=== PATIENT | male | born 2005 | race Caucasian/White ===

== ENCOUNTER 2023-09-21 11:32 | Emergency (ER) | payer OTHER, SELFPAY ==
[2023-09-21 11:38] VITALS: BP 142/84; PULSE 79; RESP 16; TEMP 36.9; O2SAT 98; BMI 28.8
--- NOTE | 2023-09-21 11:42 | PC.NURSE ---
no swelling or bruising observed with outer ankle slightly red
--- NOTE | 2023-09-21 11:44 | XR_ITS ---
The [address] [address] Patient Name: KIMBERLY MONTANEZ MRN: [id number] date: 2005 Sex: M Assigned Patient Location: ER Current Patient Location: ED.MAIN Accession/Order Number: [id number] Exam Date: 09/21/2023 11:50 Report Date: 09/21/2023 12:16 At the request of: CHAD CLAIRE Procedure: XR ankle LT min 3V PROCEDURE: XR ankle LT min 3V COMPARISON: None. HISTORY: pain FINDINGS: BONES:3 mm corticated bone fragment identified along the inferior medial aspect of the lateral malleolus. A remote injury is favored. Focal area of sclerosis distal anterior tibial metaphysis measuring 7 mm, an enostosis is favored. SOFT TISSUES:Negative. No visible soft tissue swelling. EFFUSION:None visible. OTHER: Negative. XR/XR ankle LT min 3V IMPRESSION: 3 mm bone fragment inferior lateral malleolus, likely chronic Electronically authenticated by: NITESH ROTH Date: 09/21/2023 12:16
--- NOTE | 2023-09-21 11:56 | ED.LOWEXI1 ---
HPI - Extremity Injury (Lower) General Chief Complaint: Extremity Injury, Lower Stated Complaint: LOWER EXTERMITY INJURY' LEFT Time Seen by Provider: 09/21/23 11:37 Source: patient Mode of arrival: walk-in History of Present Illness HPI Narrative: 18-year-old male presents for left ankle pain. He points to the lateral malleolus. He was walking into school today, this morning, and he twisted it. No other injury was sustained. He states he has broken that ankle before. He has been able to ambulate and the pain is moderate. Related Data Home Medications Medication Instructions Recorded Confirmed No Known Home Medications 09/21/23 09/21/23 Allergies Allergy/AdvReac Type Severity Reaction Status Date / Time cefuroxime [From Ceftin] Allergy Severe Verified 09/21/23 11:40 Penicillins Allergy Severe Verified 09/21/23 11:40 Review of Systems ROS Narrative A ten point review of systems is negative except as noted above. Exam Narrative Exam Narrative: Nurses note and vital signs reviewed and patient is not hypoxic. General: The patient appears well and in no apparent distress. Patient is resting comfortably on cart. Skin: Warm, dry, no pallor noted. There is no rash noted. Head: Normocephalic, atraumatic Eye: Normal conjunctiva, no drainage Ears, Nose, Mouth, and Throat: oral mucosa is moist. Nares patent. Cardiovascular: Regular Rate and Rhythm Respiratory: Patient is in no distress, no accessory muscle use, lungs are clear to auscultation, no wheezing, rales or rhonchi Back: non-tender GI: Soft and nontender Musculoskeletal: Left foot is nontender including the fifth metatarsal area. She has no visible swelling over the lateral malleolus. Skin intact. Mild tenderness present. Knee nontender. Neurological: A&O, normal speech Psychiatric: Cooperative Constitutional Vital Signs, click to edit/add: Last Vital Signs Temp 98.4 F 09/21/23 11:38 Pulse 79 09/21/23 11:38 Resp 16 09/21/23 11:38 BP 142/84 H 09/21/23 11:38 Pulse Ox 98 09/21/23 11:38 O2 Del Method Room Air 09/21/23 11:38 Course Vital Signs Vital signs: Vital Signs Temperature 98.4 F 09/21/23 11:38 Pulse Rate 79 09/21/23 11:38 Respiratory Rate 16 09/21/23 11:38 Blood Pressure 142/84 H 09/21/23 11:38 Pulse Oximetry 98 09/21/23 11:38 Oxygen Delivery Method Room Air 09/21/23 11:38 Temperature 98.4 F 09/21/23 11:38 Pulse Rate 79 09/21/23 11:38 Respiratory Rate 16 09/21/23 11:38 Blood Pressure 142/84 H 09/21/23 11:38 Pulse Oximetry 98 09/21/23 11:38 Oxygen Delivery Method Room Air 09/21/23 11:38 MDM - Extremity Injury (Lower) MDM Narrative Medical decision making narrative: X-ray per radiologist shows no definite acute findings. He is able to ambulate. He was offered Leandro wrap and air splint and does not feel that he needs them. Treatment diagnosis and follow-up were discussed with the patient. Differential Diagnosis Differential diagnosis: Likely ankle sprain and strain and ankle fracture Imaging Data Left ankle x-ray: Radiologist's impression: ITS Impressions Ankle X-Ray 09/21/23 11:44 IMPRESSION: 3 mm bone fragment inferior lateral malleolus, likely chronic Electronically authenticated by: NITESH ROTH Date: 09/21/2023 12:16 Discharge Plan Discharge Stand Alone Forms: Portal Instructions Chief Complaint: Extremity Injury, Lower Clinical Impression: Left ankle sprain Patient Disposition: Home, Self-Care Time of Disposition Decision: 12:22 Condition: Good Mode of Transportation: Private Vehicle Prescriptions / Home Meds: No Action No Known Home Medications Instructions: Ankle Sprain (ED) Referrals: Physician,Non-Staff, MD [Primary Care Provider] - 1 week
== END 2023-09-21 12:30 | disposition home or self-care (01) ==
PROVIDERS: Emergency Provider Emergency Medicine
DX: S93.402A Sprain of unspecified ligament of left ankle, initial encounter (principal); X50.1XXA Overexertion from prolonged static or awkward postures, initial encounter
CPT/HCPCS: 73610; 99283

== ENCOUNTER 2024-08-21 13:28 | Emergency (ER) | payer OTHER, MEDICAID, SELFPAY ==
[2024-08-21 13:38] VITALS: BP 116/84; PULSE 110; TEMP 37.1; O2SAT 97; BMI 28.7
--- OUTSIDE RECORDS SUMMARY | 2024-08-21 13:41 | XMS_ITS | CCD ---
Author Organization [facility] Care Team Providers Care Contour Band Saw Operator Vertical Name Role Phone Leo Chicas Primary Care Provider DR GUNJAN MCKENZIE Primary Care Unavailable CHRIS HUYNH Admitting Unavailable CHRIS HUYNH Attending Unavailable Nitesh Singh Unavailable CHRIS HUYNH Consulting Unavailable NICOLE MARINA Admitting Unavailable NICOLE MARINA Attending Unavailable NICOLE MARINA Primary Care Unavailable NICOLE MAIRNA Consulting Unavailable Nicole Marina Unavailable Leo Chicas Primary Care Provider Laina DYNAMOMETER TUNER - 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, Nicole Primary Care [facility] er Laina DYNAMOMETER TUNER - 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, Nicole Primary Care [facility] er LEE CARTWRIGHT Attending Unavailable NICOLE MARINA Primary Care Unavailable NICOLE MARINA Primary Care Unavailable VAL MANNING Attending UnavailNICOLE Albarado Primary Care Unavailable FRANCO HURT Referring Unavailable NICOLE MARINA Primary Care Unavailable FRANCO HURT Referring Unavailable JULIA CLARK Attending Unavailable LEO CHICAS Primary Care Unavailable HERMINIA MARINA Attending Unavail able HERMINIA MARINA Admitting Unavail able NICOLE MARINA Attending Unavailable NICOLE MARINA Admitting Unavailable VINAY JONES Attending Unavailable VINAY JONES Attending Unavailable Allergies Allergy Classification Reported Allergen(s) Allergy Type Date of Onset Reaction(s) Facility (6 sources) Cefuroxime Drug Allergy 06-28-20 16 Rash [facility], [place] (6 sources) Cyproheptadine Drug Allergy 06-28-20 16 Other (See Comments) [place], [place] (2 sources) Penicillins Propensity to adverse reactions to drug 06-28-20 16 Hives [place], [place] (1 source) Cefuroxime Drug Allergy 03-02-20 20 [facility] (1 source) Penicillins Drug allergy (disorder) 11-20-19 13 [facility] (5 sources) Cefuroxime Drug Allergy rash [facility] Other (5 sources) Penicillin G Drug Allergy Unknown [facility] Other (4 sources) Penicillins Propensity to adverse reactions to drug 06-28-20 16 [facility] PA[facility] Work Phone: Medications Current Medications Medication Drug Class(es) Dates Sig (Normalized) Sig (Original) clarithromycin 500 mg oral tablet (1 source) Macrolide Antimicrobial Start: 08-14-2022 take 1 tablet by mouth every twelve hours Clarithromycin 500 MG 1 tablet Orally every 12 hrs for 10 day(s) Aug, Active fluticasone propionate 0.05 mg/actuat metered dose nasal spray (1 source) Corticosteroid Start: 08-14-2022 take 1 spray(s) nasal route once daily Fluticasone Propionate 50 MCG/ACT 1 spray in each nostril Nasally Once a day for 21 days Aug, Active ibuprofen 400 mg oral tablet (7 sources) Nonsteroidal Anti-inflammatory Drug Start: 04-05-2021 ibuprofen (ADVIL;MOTRIN) tablet 400 mg Multivitamin preparation (4 sources) Multivitamin Act gonzales sertraline 25 mg oral tablet (2 sources) Serotonin Reuptake Inhibitor Start: 04-15-2021 take 1 tablet by mouth every twenty-four hours Sertraline HCl 25 MG 1 tablet Orally Once a day for 30 day(s) Apr, Active Completed/Discontinued Medications Medication Drug Class(es) Dates Sig (Normalized) Sig (Original) cetirizine hydrochloride 10 mg oral tablet (1 source) Histamine-1 Receptor Antagonist End: 05-13-2019 take 1 tablet by mouth once daily cetirizine (ZYRTEC) 10 MG tablet Take 10 mg by mouth daily 0 05/13/2019 Discontinued (LIST CLEANUP) 1 ml ketorolac tromethamine 30 mg/ml cartridge (1 source) Nonsteroidal Anti-inflammatory Drug, Cyclooxygenase Inhibitor Start: 12-11-2022 End: 12-11-2022 ketorolac (TORADOL) injection 30 mg Start: 12-11-2022 End: 12-11-2022 ketorolac (TORADOL) injectio n 30 mg montelukast 10 mg oral tablet (1 source) Leukotriene Receptor Antagonist End: 05-13-2019 take 1 tablet by mouth once daily montelukast (SINGULAIR) 10 MG tablet Take 10 mg by mouth nightly 0 05/13/2019 Discontinued (LIST CLEANUP) pantoprazole 40 mg delayed release oral tablet (5 sources) Proton Pump Inhibitor Start: 10-16-2020 take 1 tablet by mouth every twenty-four hours Protonix 40 MG 1 tablet Orally Once a day for 30 day(s) Oct, Not-Taking sucralfate 1000 mg oral tablet (5 sources) Aluminum Complex Start: 11-13-2020 take 1 tablet by mouth every eight hours Sucralfate 1 GM 1 tablet Orally three times a day for 30 day(s) November, Not-Taking Problems Active Problems Problem Classification Problem Date Documented Da te Episodic/Chronic Anxiety disorders (6 sources) Generalized anxiety disorder; Translations: [Generalized anxiety disorder] Onset: 1 Resolved: 1 Chronic Developmental disorders (5 sources) Nonverbal learning disorder; 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 Fracture of lower limb (5 sources) Closed fracture of ankle; Translations: [Other fracture of right lower leg, subsequent encounter for closed fracture with delayed healing] Onset: 3 Episodic Miscellaneous mental health disorders (5 sources) Psychophysiologic insomnia; Translations: [Psychophysiologic insomnia] Chronic Other disorders of stomach and duodenum (5 sources) Upset stomach; Translations: [Functional dyspepsia] Episodic Other gastrointestinal disorders (5 sources) Dysphagia; Translations: [Dysphagia, unspecified] Episodic Other injuries and conditions due to external causes (3 sources) Injury of right ankle; Translations: [Unspecified injury of right ankle, subsequent encounter] Episodic Other non-traumatic joint disorders (4 sources) Loose body in joint of ankle and/or foot; Translations: [Loose body in right ankle] Chronic Other non-traumatic joint disorders (2 sources) Loose body in right ankle Onset: 2 Resolved: 2 Chronic Other non-traumatic joint disorders (1 source) Acute ankle pain; Translations: [Pain in right ankle and joints of right foot] Episodic Other non-traumatic joint disorders (1 source) Pain of left wrist; Translations: [Pain in left wrist] Episodic Other non-traumatic joint disorders (2 sources) Other instability, right ankle; Translations: [Other instability, right ankle] Onset: 3 Episodic Otitis media and related conditions (1 source) Otitis media, unspecified, right ear Episodic Rehabilitation care; fitting of prostheses; and adjustment of devices (1 source) Encounter for fitting and adjustment of other specified devices; Translations: [Encounter for fitting and adjustment of other specified devices] Onset: 3 Chronic Sprains and strains (2 sources) Sprain of right ankle; Translations: [Sprain of unspecified ligament of right ankle, sequela] Onset: 3 Episodic Unclassified (1 source) Injury of left ankle; Translations: [Injury of left ankle, initial encounter] Unclassified (1 source) CONTACT W/AND (SUSP) EXPOS COVID-19; Translations: [CONTACT W/AND (SUSP) EXPOS COVID-19] Onset: 1 Past or Other Problems Problem Classification Problem Date Documented Date Episodic/Chronic Administrative/social admission (1 source) Encounter for examination for participation in sport; Translations: [Routine sports physical exam Z02.5] Onset: 04-15-2021 Resolved: 04-15-2021 Episodic E Codes: Fall (2 sources) Fall; Translations: [Unspecified fall, initial encounter] Onset: 10-06-2022 Episodic Other injuries and conditions due to external causes (2 sources) Unspecified injury of right ankle, subsequent encounter; Translations: [UNSPECIFIED INJURY RT ANKLE SUBSQT] Onset: 09-12-2021 Resolved: 09-12-2021 Episodic Other lower respiratory disease (4 sources) Hemoptysis; Translations: [HEMOPTYSIS] Onset: 03-19-2021 Episodic Other non-traumatic joint disorders (1 source) Pain in right ankle and joints of right foot Onset: 08-22-2021 Resolved: 08-22-2021 Episodic Other non-traumatic joint disorders (1 source) Pain in left wrist; Translations: [Pain in left wrist] Onset: 10-06-2022 Episodic Other upper respiratory infections (1 source) Acute upper respiratory infection, unspecified; Translations: [ACUTE UP RESPIRATORY INFECTION UNS] Onset: 2021 Episodic Results Test Name Value Interpretation Reference Range Facility [facility] 12-09-2023 Albumin [Mass/Vol] 4.7 g/dL Normal 3.3-5.0 [facility] Comment on above: Performed By: #### 2 [id number] #### [facility] [address] [place] [address] Albumin/Globulin (S) [Mass conc ratio] 2.0 Normal 1.1-2.2 [facility] Comment on above: Performed By: #### 2 [id number] #### [facility] [address] [place] [address] ALP [Catalytic activity/Vol] 79 Int._Unit/L Normal 21-98 [facility] Comment on above: Performed By: #### 2 [id number] #### [facility] [address] [place] [address] ALT No additional P-5'-P [Catalytic activity/Vol] 18 Int._Unit/L Normal 6-46 [facility] Comment on above: Performed By: #### 2 [id number] #### [facility] [address] [place] [address] Anion gap [Moles/Vol] 12 mmol/L Normal 6-16 [facility] [place] Comment on above: Performed By: #### 2 [id number] #### [facility] [address] [place] [address] AST [Catalytic activity/Vol] 16 Int._Unit/L Normal 5-43 [facility] Comment on above: Performed By: #### 2 [id number] #### [facility] [address] [place] [address] Bilirubin [Mass/Vol] 0.5 mg/dL Normal 0.0-1.1 [facility] Comment on above: Performed By: #### 2 [id number] #### [facility] [address] [place] [address] Calcium [Mass/Vol] 9.4 mg/dL Normal 8.9-11.1 [facility] Comment on above: Performed By: #### 2 [id number] #### [facility] [address] [place] [address] Chloride [Moles/Vol] 105 mmol/L Normal 101-111 [facility] Comment on above: Performed By: #### 2 [id number] #### [facility] [address] [place] [address] CO2 [Moles/Vol] 29 mmol/L Normal 21-31 [facility] Comment on above: Performed By: #### 2 [id number] #### [facility] [address] [place] [address] Creatinine [Mass/Vol] 1.0 mg/dL Normal 0.5-1.3 [facility] [place] Comment on above: Performed By: #### 2 [id number] #### [facility] [address] [place] [address] Globulin (S) [Mass/Vol] 2.4 g/dL Normal 1.4-4.0 [facility] Comment on above: Performed By: #### 2 [id number] #### [facility] [address] [place] [address] Glucose [Mass/Vol] 83 mg/dL Normal 55-199 [facility] Comment on above: Performed By: #### 2 [id number] #### [facility] [address] [place] [address] Potassium [Moles/Vol] 4.6 mmol/L Normal 3.5-5.3 [facility] Comment on above: Performed By: #### 2 [id number] #### [facility] [address] [place] [address] Protein [Mass/Vol] 7.1 g/dL Normal 6.0-7.8 [facility] Comment on above: Performed By: #### 2 [id number] #### [facility] [address] [place] [address] Sodium [Moles/Vol] 141 mmol/L Normal 135-145 [facility] Comment on above: Performed By: #### 2 [id number] #### [facility] [address] [place] [address] Urea nitrogen [Mass/Vol] 17 mg/dL Normal 5-21 [facility] Comment on above: Performed By: #### 2 [id number] #### [facility] [address] [place] [address] Urea nitrogen/Creatinine [Mass ratio] 17 No Units Normal 10-20 [facility] Comment on above: Performed By: #### 2 [id number] #### [facility] [address] [place] [address] Lipid Panelon 12-09-2023 Cholesterol [Mass/Vol] 133 mg/dL Normal 120-200 [facility] Comment on above: Performed By: #### 2 [id number] #### [facility] [address] [place] [address] Cholesterol in HDL [Mass/Vol] 31 mg/dL Invalid Interpretation Code [facility] Comment on above: Result Comment: '>= 60 LOW RISK' '<= 40 HIGH RISK' Performed By: #### 2 [id number] #### [facility] [address] [place] [address] Cholesterol in LDL [Mass/Vol] 85 mg/dL Normal <=129 [facility] Comment on above: Performed By: #### 2 [id number] #### [facility] [address] [place] [address] Cholesterol in VLDL [Mass/Vol] 35 mg/dL Normal 7-40 [facility] Comment on above: Performed By: #### 2 [id number] #### [facility] [address] [place] [address] Triglyceride [Mass/Vol] 174 mg/dL High <=149 [facility] Comment on above: Performed By: #### 2 [id number] #### [facility] [address] [place] [address] Physician Orderon 12-09-2023 Physician Order [id number] Normal [facility] T4 & TSHon 12-09-2023 TSH Qn 1.50 m[IU]/L Normal 0.34-5.60 [facility] Comment on above: Performed By: #### 1 [id number] #### [facility] [address] [place] [address] T4 [Mass/Vol] 8.5 microgram/dL Normal 4.6-9.1 [facility] Comment on above: Performed By: #### 1 [id number] #### [facility] [address] [place] [address] eGFRon 12-09-2023 eGFR 110 mL/min/1.73 m2 Normal >=59 [facility] Comment on above: Order Comment: Order added by Discern Expert. Performed By: #### 1 [id number] #### [facility] [address] [place] [address] XR FOOT RIGHT (MIN 3 VIEWS)o n 02-28-2023 XR FOOT RIGHT (MIN 3 VIEWS) EXAMINATION: THREE XRAY VIEWS OF THE RIGHT FOOT 02/27/2023 10:47 pm COMPARISON: None. HISTORY: ORDERING SYSTEM PROVIDED HISTORY: pain TECHNOLOGIST PROVIDED HISTORY: pain FINDINGS: 2 metallic anchors are noted in the calcaneus and talus. There is no evidence of acute fracture. There is normal alignment of the tarsometatarsal joints. No acute joint abnormality. No focal osseous lesion. No focal soft tissue abnormality. IMPRESSION: No acute osseous abnormality. Postop changes as above. Interpreted by: Jose Alberto Tello MD Signed by: Jose Alberto Tello MD 02/27/23 Final result Normal [facility] Basic Metabolic Panelon 08-0 Anion gap [Moles/Vol] 8 mmol/L Low 9 - 17 mmol/L [facility] Calcium [Mass/Vol] 9.0 mg/dL 8.6 - 10. 4 mg/dL [facility] Chloride [Moles/Vol] 102 mmol/L 98 - 10 7 mmol/L [facility] CO2 [Moles/Vol] 28 mmol/L 20 - 31 mmol/L [facility] Creatinine [Mass/Vol] 0.9 mg/dL 0.7 - 1.2 mg/dL [facility] GFR/1.73 sq M.predicted MDRD (S/P/Bld) [Vol rate/Area] - PINF [facility] Comment on above: These results are not intended for use in patients <18 years of age. eGFR results are calculated without a race factor using the 2020 CKD-EPI equation. Careful clinical correlation is recommended, particularly when comparing to results calculated using previous equations. The CKD-EPI equation is less accurate in patients with extremes of muscle mass, extra-renal metabolism of creatine, excessive creatine ingestion, or following therapy that affects renal tubular secretion. Glucose [Mass/Vol] 82 mg/dL 70 - 99 mg/dL [facility] Interpretation and review of laboratory results Abnormal [facility] Potassium [Moles/Vol] 3.8 mmol/L 3.7 - 5.3 mmol/L [facility] Sodium [Moles/Vol] 138 mmol/L 135 - 144 mmol/L [facility] Urea nitrogen [Mass/Vol] 15 mg/dL 6 - 20 mg/dL [facility] Urea nitrogen/Creatinine [Mass ratio] 17 mg/mg 9 - 20 [facility] Basic Metabolic Profon 02-10 Anion gap [Moles/Vol] 8 mmol/L Low -17 [facility] Comment on above: Performed By: #### B ALESSIA, CDP #### [facility] [address] [place] [address] Regional Trainer: Nitesh Biggs MD BUN/CRE Ratio 17 Normal - [facility] Comment on above: Performed By: #### B ALESSIA, CDP #### [facility] [address] [place] [address] Regional Trainer: Nitesh Biggs MD Calcium [Mass/Vol] 9.0 mg/dL Normal 8.6-10.4 [facility] Comment on above: Performed By: #### B ALESSIA, CDP #### [facility] [address] [place] [address] Regional Trainer: Nitesh Biggs MD Chloride [Moles/Vol] 102 mmol/L Normal 98-107 [facility] Comment on above: Performed By: #### B ALESSIA, CDP #### [facility] [address] [place] [address] Regional Trainer: Nitesh Biggs MD CO2 [Moles/Vol] 28 mmol/L Normal 20-31 [facility] Comment on above: Performed By: #### B ALESSIA, CDP #### [facility] [address] [place] [address] Regional Trainer: Nitesh Biggs MD Creatinine [Mass/Vol] 0.9 mg/dL Normal 0.7-1.2 [facility] Comment on above: Performed By: #### B ALESSIA, CDP #### [facility] [address] [place] [address] Regional Trainer: Nitesh Biggs MD GFR/1.73 sq M.predicted among non-blacks MDRD (S/P/Bld) [Vol rate/Area] mL/min/{1.73_m2} Normal >60 [facility] Comment on above: Result Comment: These results are not intended for use in patients <18 years of age. eGFR results are calculated without a race factor using the 2020 CKD-EPI equation. Careful clinical correlation is recommended, particularly when comparing to results calculated using previous equations. The CKD-EPI equation is less accurate in patients with extremes of muscle mass, extra-renal metabolism of creatine, excessive creatine ingestion, or following therapy that affects renal tubular secretion. Performed By: #### B ALESSIA, CDP #### [facility] [address] [place] [address] Regional Trainer: Nitesh Biggs MD Glucose [Mass/Vol] 82 mg/dL Normal 70-99 [facility] Comment on above: Performed By: #### B ALESSIA, CDP #### [facility] [address] [place] [address] Regional Trainer: Nitesh Biggs MD Potassium [Moles/Vol] 3.8 mmol/L Normal 3.7-5.3 [facility] Comment on above: Performed By: #### B ALESSIA, CDP #### [facility] [address] [place], [place] [id number] Regional Trainer: Nitesh Biggs MD Sodium [Moles/Vol] 138 mmol/L Normal 135-144 [facility] Comment on above: Performed By: #### B ALESSIA, CDP #### [facility] [address] [place] [address] Regional Trainer: Nitesh Biggs MD Urea nitrogen [Mass/Vol] 15 mg/dL Normal 6-20 [facility] Comment on above: Performed By: #### B ALESSIA, CDP #### [facility] [address] [place], [place] [id number] Regional Trainer: Nitesh Biggs MD CBC with Auto Differentialon 02-10-2023 Basophils (Bld) [#/Vol] 0.08 10*3/uL [facility] Basophils/100 WBC (Bld) 1 % 0 - 2 % [facility] Eosinophils (Bld) [#/Vol] 0.33 10*3/uL [facility] Eosinophils/100 WBC (Bld) 4 % 1 - 4 % [facility] Erythrocyte distribution width (RBC) [Ratio] 13.2 % 11.8 - 14.4 % [facility] Hematocrit (Bld) [Volume fraction] 46.1 % 40.7 - 50.3 % [facility] Hemoglobin (Bld) [Mass/Vol] 15.8 g/dL 13.0 - 17.0 g/dL [facility] Immature granulocytes (Bld) [#/Vol] [facility] Immature granulocytes/100 WBC (Bld) 0 % 0 [facility] Lymphocytes/100 WBC (Bld) 34 % 25 - 45 % [facility] Lymphocytes/100 WBC (Bld) 2.56 % [facility] MCH (RBC) [Entitic mass] 30.2 pg 25.2 - 33.5 pg [facility] MCHC (RBC) [Mass/Vol] 34.3 g/dL 28.4 - 34.8 g/dL [facility] MCV (RBC) [Entitic vol] 88.1 fL 82.6 - 102.9 fL [facility] Monocytes/100 WBC (Bld) 7 % 2 - 8 % [facility] Monocytes/100 WBC (Bld) 0.56 % [facility] Neutrophils/100 WBC (Bld) 54 % 34 - 64 % [facility] Nucleated RBC/100 WBC (Bld) [Ratio] 0.0 % 0.0 per 100 WBC [facility] Platelet mean volume (Bld) [Entitic vol] 10.3 fL 8.1 - 13.5 fL [facility] Platelets (Bld) [#/Vol] 229 10*3/uL [facility] RBC (Bld) [#/Vol] 5.23 10*6/uL 4.21 - 5.7 7 m/uL [facility] Segmented neutrophils/100 WBC (Bld) 4.06 % [facility] WBC other (Bld) [#/Vol] 7.6 [facility] CBC with Diffon 02-10-2023 Abs. Basophil 0.08 k/uL Normal 0.00-0.[address] [facility] Comment on above: Performed By: #### B ALESSIA, CDP #### [facility] [address] [place] [address] [place] [address] Regional Trainer: Nitesh Biggs MD Abs.Imm.Granulocyte <0.03 Normal 0.00-0.30 [facility] Comment on above: Performed By: #### B ALESSIA, CDP #### [facility] [address] [place] [address] Regional Trainer: Nitesh Biggs MD Abs.Neutrophil (Seg) 4.06 k/uL Normal 1.80-8.00 [facility] Comment on above: Performed By: #### B ALESSIA, CDP #### [facility] [address] [place] [address] [place] [place], [place] [id number] Regional Trainer: Nitesh Biggs MD Basophils/100 WBC (Bld) 1 % Normal 0-2 [facility] Comment on above: Performed By: #### B ALESSIA, CDP #### [address] [place], [place] [id number] Regional Trainer: Nitesh Biggs MD Eosinophils (Bld) [#/Vol] 0.33 10*3/uL Normal 0.00-0.44 [facility] Comment on above: Performed By: #### B ALESSIA, CDP #### [address] [place], [place] [id number] Regional Trainer: Nitesh Biggs MD Eosinophils/100 WBC (Bld) 4 % Normal 1-4 [facility] Comment on above: Performed By: #### B ALESSIA, CDP #### [address] [place], [place] [id number] Regional Trainer: Nitesh Biggs MD Erythrocyte distribution width (RBC) [Ratio] 13.2 % Normal 11.8-14.4 [facility] Comment on above: Performed By: #### B ALESSIA, CDP #### [address] [place], [place] [id number] Regional Trainer: Nitesh Biggs MD Hematocrit (Bld) [Volume fraction] 46.1 % Normal 40.7-50.3 [facility] Comment on above: Performed By: #### B ALESSIA, CDP #### [address] [place], [place] [id number] Regional Trainer: Nitesh Biggs MD Hemoglobin (Bld) [Mass/Vol] 15.8 g/dL Normal 13.0-17.0 [facility] Comment on above: Performed By: #### B ALESSIA, CDP #### [address] [place], [facility]83 Regional Trainer: Nitesh Biggs MD Immature granulocytes/100 WBC (Bld) 0 % Normal 0 [facility] Comment on above: Performed By: #### B ALESSIA, CDP #### [address] [place], [facility]83 Regional Trainer: Nitesh Biggs MD Lymphocytes (Bld) [#/Vol] 2.56 10*3/uL Normal 1.20-5.20 [facility] Comment on above: Performed By: #### B ALESSIA, CDP #### [address] [place], [facility]83 Regional Trainer: Nitesh Biggs MD Lymphocytes/100 WBC (Bld) 34 % Normal 25-45 [facility] Comment on above: Performed By: #### B ALESSIA, CDP #### [address] [place], [place] [address] Regional Trainer: Nitesh Biggs MD MCH (RBC) [Entitic mass] 30.2 pg Normal 25.2-33.5 [facility] Comment on above: Performed By: #### B ALESSIA, CDP #### [address] [place], [facility]58 ( Regional Trainer: Nitesh Biggs MD MCHC (RBC) [Mass/Vol] 34.3 g/dL Normal 28.4-34.8 [facility] Comment on above: Performed By: #### B ALESSIA, CDP #### [address] [place] [address] Regional Trainer: Nitesh Biggs MD MCV (RBC) [Entitic vol] 88.1 fL Normal 82.6-102.9 [facility] Comment on above: Performed By: #### B ALESSIA, CDP #### [facility] [address] [place] [id number] Regional Trainer: Nitesh Biggs MD Monocytes (Bld) [#/Vol] 0.56 10*3/uL Normal 0.10-1.40 [facility] Comment on above: Performed By: #### B MP, CDP #### [facility] [address] [place], [place] [id number] Regional Trainer: Nitesh Biggs MD Monocytes/100 WBC (Bld) 7 % Normal 2-8 [facility] Comment on above: Performed By: #### B MP, CDP #### [facility] [address] [place], [facility]83 Regional Trainer: Nitesh Biggs MD Neutrophil (Seg) 54 % Normal 34-64 [facility] Comment on above: Performed By: #### B MP, CDP #### [facility] [address] [place] [address] Dr. [place], [facility]83 Regional Trainer: Nitesh Biggs MD NRBC Automated 0.0 per 100 WBC Normal 0.0 [facility] Comment on above: Performed By: #### B MP, CDP #### [facility] [address] [place], [facility]83 Regional Trainer: Nitesh Biggs MD Platelet mean volume (Bld) [Entitic vol] 10.3 fL Normal 8.1-13.5 [facility] Comment on above: Performed By: #### B MP, CDP #### [facility] [address] [place], [place] [id number] Regional Trainer: Nitesh Biggs MD Platelets (Bld) [#/Vol] 229 10*3/uL Normal 138-453 [facility] Comment on above: Performed By: #### B MP, CDP #### [facility] [address] [place], [place] [id number] Regional Trainer: Nitesh Biggs MD RBC (Bld) [#/Vol] 5.23 10*6/uL Normal 4.21-5.77 [facility] Comment on above: Performed By: #### B ALESSIA, CDP #### [facility] [address] [place], [place] [id number] Regional Trainer: Nitesh Biggs MD WBC (Bld) [#/Vol] 7.6 10*3/uL Normal 4.5-13.5 [facility] Comment on above: Performed By: #### B ALESSIA, CDP #### [facility] [address] [place], [place] [id number] Regional Trainer: Nitesh Biggs MD XR ANKLE RIGHT (MIN 3 VIEWS) on 12-11-2022 XR ANKLE RIGHT (MIN 3 VIEWS) EXAMINATION: THREE XRAY VIEWS OF THE RIGHT ANKLE 12/11/2022 7:47 pm COMPARISON: 04/05/2021 HISTORY: ORDERING SYSTEM PROVIDED HISTORY: injury TECHNOLOGIST PROVIDED HISTORY: injury FINDINGS: There is no acute fracture. The ankle mortise is maintained. Corticated ossicles at the tip of the lateral malleolus are similar to prior exam, related to prior trauma. There is mild soft tissue swelling over the lateral malleolus. IMPRESSION: No acute fracture or dislocation. Mild soft tissue swelling over the lateral malleolus. Interpreted by: Dusty Daniel MD Signed by: Dusty Daniel MD 12/11/22 Final result Normal [facility] XR HAND LEFT (MIN 3 VIEWS)on 10-06-2022 XR HAND LEFT (MIN 3 VIEWS) EXAMINATION: THREE XRAY VIEWS OF THE LEFT HAND; 3 XRAY VIEWS OF THE LEFT WRIST 10/05/2022 10:10 pm COMPARISON: 07/11/2008. HISTORY: ORDERING SYSTEM PROVIDED HISTORY: pain TECHNOLOGIST PROVIDED HISTORY: pain FINDINGS: There is no evidence of acute fracture. There is normal alignment. No acute joint abnormality. No focal osseous lesion. No focal soft tissue abnormality. IMPRESSION: No acute osseous abnormality. Interpreted by: Glen Haynes MD Signed by: Glen Haynes MD 10/05/22 Final result Normal [facility] XR WRIST LEFT (MIN 3 VIEWS)o n 10-06-2022 XR WRIST LEFT (MIN 3 VIEWS) EXAMINATION: THREE XRAY VIEWS OF THE LEFT HAND; 3 XRAY VIEWS OF THE LEFT WRIST 10/05/2022 10:10 pm COMPARISON: 07/11/2008. HISTORY: ORDERING SYSTEM PROVIDED HISTORY: pain TECHNOLOGIST PROVIDED HISTORY: pain FINDINGS: There is no evidence of acute fracture. There is normal alignment. No acute joint abnormality. No focal osseous lesion. No focal soft tissue abnormality. IMPRESSION: No acute osseous abnormality. Interpreted by: Glen Haynes MD Signed by: Glen Haynes MD 10/05/22 Final result Normal [facility] No Panel Informationon 10-05 No acute osseous abnormality. [facility] EXAMINATION: THREE XRAY VIEWS OF THE LEFT HAND; 3 XRAY VIEWS OF THE LEFT WRIST 10/05/2022 10:10 pm COMPARISON: 07/11/2008. HISTORY: ORDERING SYSTEM PROVIDED HISTORY: pain TECHNOLOGIST PROVIDED HISTORY: pain FINDINGS: There is no evidence of acute fracture. There is normal alignment. No acute joint abnormality. No focal osseous lesion. No focal soft tissue abnormality. [facility] Glen Haynes MD - 10/05/2022 EXAMINATION: THREE XRAY VIEWS OF THE LEFT HAND; 3 XRAY VIEWS OF THE LEFT WRIST 10/05/2022 10:10 pm COMPARISON: 07/11/2008. HISTORY: ORDERING SYSTEM PROVIDED HISTORY: pain TECHNOLOGIST PROVIDED HISTORY: pain FINDINGS: There is no evidence of acute fracture. There is normal alignment. No acute joint abnormality. No focal osseous lesion. No focal soft tissue abnormality. IMPRESSION: No acute osseous abnormality. [employer] Phone: No Panel InformationOrdered By: Glen Haynes on 10-05-2022 [employer] Phone: XR HAND LEFT (MIN 3 VIEWS)on 10-05-2022 Radiology Study observation (narrative) [employer] Phone: XR WRIST LEFT (MIN 3 VIEWS)o n 10-05-2022 Radiology Study observation (narrative) [employer] 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 Didi Del Rosario ANKLE LEFT 3 VWSon 2 ANKLE LEFT 3 S [facility] Department of Radiology [address] [place] [address] Patient Name: KIMBERLY CLEANING : 2005 Sex: M Age: Race: White Pt. Location: Patient Status: Ordered Date: 09/16/2021 12:05:00 PM Completed Date: 09/16/2021 12:06 PM Requesting Provider: CLEO CURRIE Attending Provider: Report Copy To: Signs & Symptoms: M25.371 Other instability, right ankle I10 History: Comments: For comparisson to R ankle xrays Exam: ANKLE LEFT 3 [facility] ANKLE LEFT 3 [facility] 09/16/2021 12:06 PM CLINICAL INDICATIONS: M25.371 Other instability, right ankle I10 TECHNOLOGIST COMMENTS: Left ankle for comparison QUESTION FOR THE RADIOLOGIST: For comparisson to R ankle xrays PROTOCOL: AP,Lateral and Oblique views were obtained. COMPARISON: None FINDINGS: 3 views ankle were obtained. No focal osseous abnormalities evident. Linear density adjacent to the distal fibula may be the sequela of an old injury. Articular surfaces are intact. Bone mineralization is within normal limits IMPRESSION: Linear density adjacent to the lateral malleolus tip possibly related to prior avulsion injury. No acute abnormality evident radiographically. Electronically signed: Tate Ochoa. Transcribed by: [email or web address], User Resident: Electronically Signed by: TATE OCHOA @ 09/16/2021 08:52 PM Normal [facility] Comment on above: Order Comment: For c omparisson to R ankle xrays ANKLE RIGHT 3 Son 09-17-19 22 ANKLE RIGHT 3 S [facility] Department of Radiology [address] [place] [id number] Patient Name: KIMBERLY CLEANING : 2005 Sex: M Age: Race: White Pt. Location: Patient Status: O Ordered Date: 09/16/2021 11:05:00 AM Completed Date: 09/16/2021 12:05 PM Requesting Provider: CLEO CURRIE Attending Provider: CLEO CURRIE Report Copy To: Signs & Symptoms: M25.571 Pain in right ankle and joints of right foot I10 History: Cee Comments: Weight Bearing?: Y Exam: ANKLE RIGHT 3 [facility] ANKLE RIGHT 3 [facility] 09/16/2021 12:05 PM CLINICAL INDICATIONS: M25.571 Pain in right ankle and joints of right foot I10 TECHNOLOGIST COMMENTS: Patient states he injured right ankle 04/2021. Pain and swelling in right ankle. QUESTION FOR THE RADIOLOGIST: Weight Bearing?: Y PROTOCOL: AP,Lateral and Oblique views were obtained. COMPARISON: None FINDINGS: Chronic-appearing fracture fragment at the distal aspect of the right lateral malleolus. The tibiotalar, subtalar, and talonavicular joint appear unremarkable. The ankle mortise is intact. No acute fracture identified. IMPRESSION: * Chronic-appearing fracture deformity of the right lateral malleolus. No acute osseous abnormality. Approved by:Jason Puentes09/16/2021 4:21 PM. I, Trevor Monson,have reviewed the image(s) and agree with the findings in this report. Electronically signed: Trevor Monson. Transcribed by: [email or web address], User Resident: JASON DUDLEY Electronically Signed by: TREVOR MONSON @ 09/16/2021 04:47 PM I personally read this/these film(s) with this resident Normal [facility] Comment on above: Order Comment: Weigh t Bearing?: Y RHEUMATOID FACTORon 09-15-19 RA Latex Turbid. <10.0 Normal <14.0 [facility] Comment on above: Performed By: #### R F #### [facility] [address] [place] [address] Dr. Didi Del Rosario CBC AUTO DIFFon 09-12-2021 BASO # 0.1 103/ul Normal 0.0-0.1 [facility] Comment on above: Performed By: #### C BC #### [facility] [address] [place] [address] Dr. Didi Del Rosario Basophils/100 WBC (Bld) 1.1 % Normal 0.2-2.0 [facility] Comment on above: Performed By: #### C BC #### [facility] [address] [place] [address] Dr. Didi Del Rosario EO # 0.2 103/ul Normal 0.0-0.7 [facility] Comment on above: Performed By: #### C BC #### [facility] [address] [place] [address] Dr. Didi Del Rosario Eosinophils/100 WBC (Bld) 2.6 % Normal 0.9-7.0 [facility] Comment on above: Performed By: #### C BC #### [facility] [address] [place] [address] Dr. Didi Del Rosario Erythrocyte distribution width (RBC) [Ratio] 13.4 % Normal 11.0-15.0 [facility] Comment on above: Performed By: #### C BC #### [facility] [address] [place] [address] Dr. Didi Del Rosario Hematocrit (Bld) [Volume fraction] 48.8 % Normal 42.0-54.0 [facility] Comment on above: Performed By: #### C BC #### [facility] [address] [place] [address] Dr. Didi Del Rosario Hemoglobin (Bld) [Mass/Vol] 16.2 g/dL Normal 14.0-18.0 [facility] Comment on above: Performed By: #### C BC #### [facility] [address] [place] [address] Dr. Didi Del Rosario IG # 0.01 10e3/ul Normal 0.00-0.03 [facility] Comment on above: Performed By: #### C BC #### [facility] [address] [place] [address] Dr. Didi Del Rosario IG % 0.1 % Normal 0.0-0.5 [facility] Comment on above: Performed By: #### C BC #### [facility] [address] [place] [address] Dr. Didi Del Rosario LYMPH # 2.6 103/ul Normal 1.2-3.8 [facility] Comment on above: Performed By: #### C BC #### [facility] [address] [place] [address] Dr. Didi Del Rosario Lymphocytes/100 WBC (Bld) 31.6 % Normal 20.5-60.0 [facility] Comment on above: Performed By: #### C BC #### [facility] [address] [place] [address] Dr. Didi Del Rosario MANUAL DIFF REQ NO Normal [facility] Comment on above: Performed By: #### C BC #### [facility] [address] [place] [address] Dr. Didi Del Rosario MCH (RBC) [Entitic mass] 29.9 pg Normal 25.9-34.0 [facility] Comment on above: Performed By: #### C BC #### [facility] [address] [place] [address] Dr. Didi Del Rosario MCHC (RBC) [Mass/Vol] 33.2 g/dL Normal 29.9-35.2 [facility] Comment on above: Performed By: #### C BC #### [facility] [address] [place] [address] Dr. Didi Del Rosario MCV (RBC) [Entitic vol] 90.2 fL Normal 80.0-94.0 [facility] Comment on above: Performed By: #### C BC #### [facility] [address] [place] [address] Dr. Didi Del Rosario MONO # 0.7 103/ul Normal 0.3-0.8 [facility] Comment on above: Performed By: #### C BC #### [facility] [address] [place] [address] Dr. Didi Del Rosario Monocytes/100 WBC (Bld) 7.8 % Normal 1.7-12.0 [facility] Comment on above: Performed By: #### C BC #### [facility] [address] [place] [address] Dr. Didi Del Rosario NEUT # 4.7 103/ul Normal 1.4-6.5 [facility] Comment on above: Performed By: #### C BC #### [facility] [address] [place] [address] Dr. Didi Del Rosario Neutrophils/100 WBC (Bld) 56.8 % Normal 43.0-75.0 [facility] Comment on above: Performed By: #### C BC #### [facility] [address] [place] [address] Dr. Didi Del Rosario Platelet mean volume (Bld) [Entitic vol] 10.6 fL Normal 9.5-13.5 [facility] Comment on above: Performed By: #### C BC #### [facility] [address] [place] [address] Dr. Didi Del Rosario PLT 273 103/ul Normal 150-450 [facility] Comment on above: Performed By: #### C BC #### [facility] [address] [place] [address] Dr. Didi Del Rosario RBC 5.41 106/ul Normal 4.70-6.10 [facility] Comment on above: Performed By: #### C BC #### [facility] [address] [place] [address] Dr. Didi Del Rosario WBC 8.3 103/ul Normal 4.0-11.0 [facility] Comment on above: Performed By: #### C BC #### [facility] [address] [place] [address] Dr. Didi Del Rosario CRPon 09-12-2021 CRP [Mass/Vol] mg/L Normal <=1.0 [facility] Comment on above: Performed By: #### C MP, URIC, CRP #### [facility] [address] [place] [address] Dr. Didi Del Rosario PROF 14(COMP METB)on 022 Albumin [Mass/Vol] 4.6 g/dL Normal 3.5-5.0 [facility] Comment on above: Performed By: #### C MP, URIC, CRP #### [facility] [address] [place] [address] Dr. Didi Del Rosario Albumin/Globulin [Mass ratio] 1.4 {ratio} Normal [facility] Comment on above: Performed By: #### C MP, URIC, CRP #### [facility] [address] [place] [address] Dr. Didi Del Rosario ALP [Catalytic activity/Vol] 87 U/L Normal 38-126 [facility] Comment on above: Performed By: #### C MP, URIC, CRP #### [facility] [address] [place] [address] Dr. Didi Del Rosario ALT [Catalytic activity/Vol] 19 U/L Critically low 21-72 [facility] Comment on above: Performed By: #### C MP, URIC, CRP #### [facility] [address] [place] [address] Dr. Didi Del Rosario Anion gap [Moles/Vol] 10.6 mmol/L Normal [facility] Comment on above: Performed By: #### C MP, URIC, CRP #### [facility] [address] [address] [address] Didi Del Rosario AST [Catalytic activity/Vol] 16 U/L Critically low 17-59 [facility] Comment on above: Performed By: #### C MP, URIC, CRP #### [facility] [address] [address] [address] Didi Del Rosario Bilirubin [Mass/Vol] 0.6 mg/dL Normal 0.2-1.3 [facility] Comment on above: Performed By: #### C MP, URIC, CRP #### [facility] [address] [place] [address] Dr. Didi Del Rosario Calcium [Mass/Vol] 8.6 mg/dL Normal 8.4-10.2 [facility] Comment on above: Performed By: #### C MP, URIC, CRP #### [facility] [address] [place] [address] Dr. Didi Del Rosario Chloride [Moles/Vol] 104 mmol/L Normal 98-107 [facility] Comment on above: Performed By: #### C MP, URIC, CRP #### [facility] [address] [place] [address] Dr. Didi Del Rosario CO2 [Moles/Vol] 29.1 mmol/L Normal 22.0-30.0 [facility] Comment on above: Performed By: #### C MP, URIC, CRP #### [facility] [address] [place] [address] Dr. Didi Del Rosario Creatinine [Mass/Vol] 1.02 mg/dL Normal 0.66-1.25 [facility] Comment on above: Performed By: #### C MP, URIC, CRP #### [facility] [address] [place] [address] Dr. Ddii Del Rosario EGFR-AF RWANDAN >60 Normal >=60 [facility] Comment on above: Performed By: #### C MP, URIC, CRP #### [facility] [address] [address] [address] Didi Del Rosario EGFR-NON AF RWANDAN >60 Normal >=60 [facility] Comment on above: Performed By: #### C MP, URIC, CRP #### [facility] [address] [place] [address] Dr. Didi Del Rosario Globulin (S) [Mass/Vol] 3.4 g/dL Normal [facility] Comment on above: Performed By: #### C MP, URIC, CRP #### [facility] [address] [place] [address] Dr. Didi Del Rosario Glucose [Mass/Vol] 92 mg/dL Normal 74-106 [facility] Comment on above: Performed By: #### C MP, URIC, CRP #### [facility] [address] [place] [address] Dr. Didi Del Rosario Potassium [Moles/Vol] 3.7 mmol/L Normal 3.4-5.0 [facility] Comment on above: Performed By: #### C MP, URIC, CRP #### [facility] [address] [place] [address] Dr. Didi Del Rosario Protein [Mass/Vol] 8.0 g/dL Normal 6.1-8.2 [facility] Comment on above: Performed By: #### C MP, URIC, CRP #### [facility] [address] [place] [address] Dr. Didi Del Rosario Sodium [Moles/Vol] 140 mmol/L Normal 137-145 [facility] Comment on above: Performed By: #### C MP, URIC, CRP #### [facility] [address] [place] [address] Dr. Didi Del Rosario Urea nitrogen [Mass/Vol] 17.0 mg/dL Normal 6.4-19.3 [facility] Comment on above: Performed By: #### C MP, URIC, CRP #### [facility] [address] [place] [address] Dr. Didi Del Rosario Urea nitrogen/Creatinine [Mass ratio] 16.7 mg/mg Normal [facility] Comment on above: Performed By: #### C MP, URIC, CRP #### [facility] [address] [place], [place] [address] Dr. Didi Del Rosario URIC ACID SERUMon 09-12-2021 Urate [Mass/Vol] 7.0 mg/dL Normal 3.5-8.5 [facility] Comment on above: Performed By: #### C MP, URIC, CRP #### [facility] [address] [address] [address] Didi Del Rosario VITAMIN D 25 OHon 09-12-2021 VIT D 25-OH 32.6 ng/mL Normal [facility] Comment on above: Performed By: #### V ITAD #### [facility] [address] [place] [address] Dr. Didi Del Rosario VIT D RANGES SEE BELOW Normal [facility] Comment on above: Result Comment: <20 ng/mL Vit D deficient 20 - <30 ng/mL Vit D insufficient 30 - 100 ng/mL Vit D sufficient >100 ng/mL Potential Toxicity Performed By: #### V ITAD #### [facility] [address] [place] [address] Dr. Didi Del Rosario XR ankle RT min 3V*on 2021 XR ankle RT min 3V* [facility] [place] [address] XRay Report Signed Patient: Kimberly Cleaning MR#: [id number] : 2005 Acct:[id number] Age/Sex: 16 / M ADM Date: 08/22/21 Loc: XDCLY Room: Type: [facility] Attending Dr: Nicole PHILLIPS Ordering Provider: NICOLE MARINA Date of Service: 08/22/21 XR/XR ankle RT min 3V*: Pain in right ankle and joints of right foot Copies to: NICOLE MARINA XR ankle RT min 3V* 08/22/2021 1:17 PM SIGNS AND SYMPTOMS: Right ankle pain laterally PROTOCOL: Frontal, lateral, and oblique radiographs of the right ankle. COMPARISON: None FINDINGS: The ankle mortise is preserved. There is a tiny well-corticated fragment separate from the lateral malleolus suggestive of a remote avulsive injury. There is minimal soft tissue swelling over the lateral malleolus. There is no joint effusion. No acute displaced fracture. XR/XR ankle RT min 3V* IMPRESSION: No acute displaced fracture. There is a tiny well-corticated fragment separate from the lateral malleolus suggestive of a remote avulsive injury. Minimal soft tissue swelling is noted laterally. Impression dictated by: Jack Concepcion M.D.08/22/2021 2:48 PM Dictation Location: [place] [address] Transcribed By: [facility] 08/22/21 1448 Dictated By: Jack Concepcion II, MD 08/22/211445 Signed By: 08/22/211447 [facility] XR ankle RT min 3V* [facility] [employer] 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 (Inspect Manager) Other XR ankle RT min 3V* [address] [place] [address] [employer] (Inspect Manager) Other XR ankle RT min 3V* [place] [address] [employer] Other XR ankle RT min 3V* XRay Report [employer] Other XR ankle RT min 3V* Signed [employer] Other XR ankle RT min 3V* Patient: Kimberly Cleaning MR#: [id number] [employer] Other XR ankle RT min 3V* 7734 [employer] Other XR ankle RT min 3V* : 2005 Acct:[id number] [employer] Other XR ankle RT min 3V* Age/Sex: 16 / M ADM Date: 08/22/21 [employer] Other XR ankle RT min 3V* Loc: XDCLY Room: Type: REG CLI [employer] Other XR ankle RT min 3V* Attending Dr: Nicole Marina [facility] [employer] Other XR ankle RT min 3V* Ordering Provider: NICOLE MARINA [employer] Other XR ankle RT min 3V* Date of Service: 08/22/21 [employer] Other XR ankle RT min 3V* XR/XR ankle RT min 3V*: Pain in right ankle and joints of right foot [employer] Other XR ankle RT min 3V* Copies to: NICOLE MARINA [facility] [employer] Other XR ankle RT min 3V* XR ankle RT min 3V* 08/22/2021 1:17 PM [employer] Other XR ankle RT min 3V* SIGNS AND SYMPTOMS: Right ankle pain laterally [employer] Other XR ankle RT min 3V* PROTOCOL: Frontal, lateral, and oblique radiographs of the right ankle. [employer] Other XR ankle RT min 3V* COMPARISON: None [employer] Other XR ankle RT min 3V* FINDINGS: [employer] Other XR ankle RT min 3V* The ankle mortise is preserved. There is a tiny well-corticated fragment separate from the lateral [employer] Other XR ankle RT min 3V* malleolus suggestive of a remote avulsive injury. There is minimal soft tissue swelling over the [employer] Other XR ankle RT min 3V* lateral malleolus. There is no joint effusion. No acute displaced fracture. [employer] Other XR ankle RT min 3V* XR/XR ankle RT min 3V* [employer] Other XR ankle RT min 3V* IMPRESSION: [employer] Other XR ankle RT min 3V* No acute displaced fracture. [employer] Other XR ankle RT min 3V* There is a tiny well-corticated fragment separate from the lateral malleolus suggestive of a remote [employer] Other XR ankle RT min 3V* avulsive injury. [employer] Other XR ankle RT min 3V* Minimal soft tissue swelling is noted laterally. [employer] Other XR ankle RT min 3V* Impression dictated by: Jack Concepcion M.D.08/22/2021 2:48 PM [employer] Other XR ankle RT min 3V* Dictation Location: [facility]- [employer] Other XR ankle RT min 3V* Transcribed By: KRIS 08/22/21 1448 [employer] Other XR ankle RT min 3V* Dictated By: Jack Concepcion II, MD 08/22/21 [facility] [employer] Other XR ankle RT min 3V* Signed By: [employer] Other XR ankle RT min 3V* 08/22/21 1448 No [employer] Other XR ANKLE RIGHT (MIN 3 VIEWS) Ordered By: Jay iRos on 04-05-2021 Soft tissue swelling with no evidence of an acute fracture or dislocation. 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 [employer]: EXAMINATION: THREE XRAY VIEWS OF THE RIGHT ANKLE 04/05/2021 8:07 pm COMPARISON: None. HISTORY: ORDERING SYSTEM PROVIDED HISTORY: injury TECHNOLOGIST PROVIDED HISTORY: injury FINDINGS: Mild anterior and lateral right ankle soft tissue swelling. 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 There are 2 ossific densities with smooth margins. No other bone, joint or soft tissue abnormality. No acute fracture or dislocation. Ankle mortise is symmetric. Swivel Phone: Doug, [facility] Incoming Radiant Results From [employer] - 04/05/2021 8:28 PM EDT EXAMINATION: THREE XRAY VIEWS OF THE RIGHT ANKLE 04/05/2021 8:07 pm COMPARISON: None. HISTORY: ORDERING SYSTEM PROVIDED HISTORY: injury TECHNOLOGIST PROVIDED HISTORY: injury FINDINGS: Mild anterior and lateral right ankle soft tissue swelling. 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 There are 2 ossific densities with smooth margins. No other bone, joint or soft tissue abnormality. No acute fracture or dislocation. Ankle mortise is symmetric. IMPRESSION: Soft tissue swelling with no evidence of an acute fracture or dislocation. 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 Swivel Phone: Swivel Phone: XR TIBIA FIBULA RIGHT (2 VIE WS)Ordered By: Ash Cespdees on 04-05-2021 No acute bony abnormalities are noted Sw[employer] Phone: EXAMINATION: XRAY VIEWS OF THE RIGHT TIBIA AND FIBULA 04/05/2021 5:50 pm COMPARISON: None. HISTORY: ORDERING SYSTEM PROVIDED HISTORY: pain after kicked soccer ball TECHNOLOGIST PROVIDED HISTORY: pain after kicked soccer ball FINDINGS: Mild anterior and lateral right ankle soft tissue swelling. 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 There are 2 ossific densities with smooth margins. No other bone, joint or soft tissue abnormality. No acute fracture or dislocation. Ankle mortise is symmetric. [employer] Phone: Doug, [facility] Incoming Radiant Results From [employer] - 04/05/2021 9:03 PM EDT EXAMINATION: XRAY VIEWS OF THE RIGHT TIBIA AND FIBULA 04/05/2021 5:50 pm COMPARISON: None. HISTORY: ORDERING SYSTEM PROVIDED HISTORY: pain after kicked soccer ball TECHNOLOGIST PROVIDED HISTORY: pain after kicked soccer ball FINDINGS: Mild anterior and lateral right ankle soft tissue swelling. 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 There are 2 ossific densities with smooth margins. No other bone, joint or soft tissue abnormality. No acute fracture or dislocation. Ankle mortise is symmetric. IMPRESSION: No acute bony abnormalities are noted Swivel Phone: Swivel Phone: Covid-19 PCR (CVDTB)on SARS-CoV-2 (COVID-19) RNA JOSE G+probe Ql (Unsp spec) Not detected Normal NOT DETECTED [facility] Comment on above: Result Comment: This test is not yet approved or cleared by the [place] FDA. When there are no FDA-approved or cleared tests available, and other criteria are met, FDA can make tests available under an emergency access mechanism called an Emergency Use Authorization (EUA). The EUA for this test is supported by the Copyright Expert of Health and Human Service's (HHS's) declaration that circumstances exist to justify the emergency use of in vitro diagnostics for the detection and/or diagnosis of the virus that causes COVID-19. This EUA will remain in effect (meaning this test can be used) for the duration of the COVID-19 declaration justifying emergency of IVDs, unless it is terminated or revoked by FDA (after which the test may no longer be used). When diagnostic testing is negative, the possibility of a false negative should be considered in the context of a patient's recent exposures and the presence of clinical signs and symptoms consistent with SARS-CoV-2. Performed By: #### C VDTB, CVDAGS #### [facility] [address] [place] [address] Billy Murrieta SYMPTOMATIC COVID-19 ANTIGEN on 03-19-2021 EUA Statement SEE BELOW Normal The [facility] Comment on above: Result Comment: This test has not been FDA cleared or approved, but has been authorized by the FDA under an Emergency Use Authorization (EUA) for use by authorized laboratories certified under CLIA that meet the requirements to perform moderate or high complexity testing. This test has been authorized only for the detection of proteins from SARS-CoV-2, not for any other viruses or pathogens. The emergency use of this test is authorized for the duration of the declaration that circumstances exist justifying the authorization of emergency use of in vitro diagnostic tests for detection and/or diagnosis of Covid-19 under section 564(b)(1) of the Act, 21 U.S.C. 360bbb-3(b)(1), unless the declaration is terminated or authorization is revoked sooner. Performed By: #### C VDTB, CVDAGS #### [facility] [address] [address] Billy Murrieta SARS-CoV-2 (COVID-19) RNA JOSE G+probe Ql (Unsp spec) Negative Normal NEGATIVE [facility] Comment on above: Result Comment: CONF IRMATION BY PCR PENDING PER CDC GUIDELINES/ SYMPTOMATIC PATIENT. Performed By: #### C VDTB, CVDAGS #### [facility] [address] [id number] Billy Murrieta XR CHEST 1 Von 03-19-2021 XR CHEST 1 V Single view of the chest. HISTORY: Cough. COMPARISON: None. TECHNIQUE: AP portable upright view of the chest FINDINGS: Heart and vascularity are unremarkable. Lungs are expanded and free of focal infiltrates. No effusions are noted. IMPRESSION: No acute heart or lung disease identified. Electronically authenticated by: NITESH SINGH Date: 2021-03-19 11:22 Normal [facility] Celiacon 02-13-2021 Deamidated Gliadin Abs, IgA 3 Normal 0-19 [facility] Comment on above: Order Comment: Reaso n for Exam RUQ abdominal pain;Nausea Result Comment: Nega tive 0 - 19 Weak Positive 20 - 30 Moderate to Strong Positive >30 Performed By: #### C ELIAC #### [facility] , #### CMP, CBC #### [facility] [address] Deamidated Gliadin Abs, IgG 2 Normal 0-19 [facility] Comment on above: Order Comment: Reaso n for Exam RUQ abdominal pain;Nausea Result Comment: Nega tive 0 - 19 Weak Positive 20 - 30 Moderate to Strong Positive >30 Performed By: #### C ELIAC #### [facility] , #### CMP, CBC #### [facility] [address] [place] [address] [place] Endomysial Antibody IgA Negative Normal Negative [facility] Comment on above: Order Comment: Reaso n for Exam RUQ abdominal pain;Nausea Performed By: #### C ELIAC #### [facility] , #### CMP, CBC #### [place] [address] [place] Immunoglobulin A, Qn, Serum 158 mg/dL Normal 90-386 [facility] Comment on above: Order Comment: Reaso n for Exam RUQ abdominal pain;Nausea Result Comment: Perf ormed at: [facility] [id number] Regional Trainer: Kip Minor PhD, Phone: [phone] PERFORMED BY: [place] [address] PATHOLOGIST TANK SHOP SUPERVISOR LISA KEENAN M.D. Performed By: #### C ELIAC #### [facility] , #### CMP, CBC #### [address] T-Transglutaminase (tTG) IgA <2 Normal 0-3 [facility] Comment on above: Order Comment: Reaso n for Exam RUQ abdominal pain;Nausea Result Comment: Nega tive 0 - 3 Weak Positive 4 - 10 Positive >10 Tissue Transglutaminase (tTG) has been identified as the endomysial antigen. Studies have demonstr- ated that endomysial IgA antibodies have over 99% specificity for gluten sensitive enteropathy. Performed By: #### C ELIAC #### [facility] , #### CMP, CBC #### [place] [address] [place] T-Transglutaminase (tTG) IgG <2 Normal 0-5 [facility] Comment on above: Order Comment: Reaso n for Exam RUQ abdominal pain;Nausea Result Comment: Nega tive 0 - 5 Weak Positive 6 - 9 Positive >9 Performed By: #### C ELIAC #### [facility] , #### CMP, CBC #### [address] Complete Blood Count Auto Di ffon 02-13-2021 Basophils (Bld) [#/Vol] 0.1 10*3/uL Normal 0.0-0.1 [facility] Comment on above: Order Comment: Reaso n for Exam RUQ abdominal pain;Nausea Result Comment: PERF ORMED BY: [place] [address] PATHOLOGIST TANK SHOP SUPERVISOR LISA KEENAN M.D. Performed By: #### C ELIAC #### [facility] , #### CMP, CBC #### [place] [address] [place] Basophils/100 WBC (Bld) 0.9 % Normal . [facility] Comment on above: Order Comment: Reaso n for Exam RUQ abdominal pain;Nausea Performed By: #### C ELIAC #### [facility] , #### CMP, CBC #### [place] [address] [place] Eosinophils (Bld) [#/Vol] 0.3 10*3/uL Normal 0.0-0.7 [facility] Comment on above: Order Comment: Reaso n for Exam RUQ abdominal pain;Nausea Performed By: #### C ELIAC #### [facility] , #### CMP, CBC #### [facility] [address] [place] [address] [place] Eosinophils/100 WBC (Bld) 3.7 % Normal . [facility] Comment on above: Order Comment: Reaso n for Exam RUQ abdominal pain;Nausea Performed By: #### C ELIAC #### [facility] , #### CMP, CBC #### [address] Erythrocyte distribution width (RBC) [Ratio] 13.6 % Normal 12.0-14.8 [facility] Comment on above: Order Comment: Reaso n for Exam RUQ abdominal pain;Nausea Performed By: #### C ELIAC #### [facility] , #### CMP, CBC #### [address] Hematocrit (Bld) [Volume fraction] 45.5 % Normal 37.0-49.0 [facility] Comment on above: Order Comment: Reaso n for Exam RUQ abdominal pain;Nausea Performed By: #### C ELIAC #### [facility] , #### CMP, CBC #### [address] Hemoglobin (Bld) [Mass/Vol] 15.9 g/dL Normal 13.0-16.0 [facility] Comment on above: Order Comment: Reaso n for Exam RUQ abdominal pain;Nausea Performed By: #### C ELIAC #### [facility] , #### CMP, CBC #### [address] Lymphocytes (Bld) [#/Vol] 2.6 10*3/uL Normal 1.20-4.8 [facility] Comment on above: Order Comment: Reaso n for Exam RUQ abdominal pain;Nausea Performed By: #### C ELIAC #### [facility] , #### CMP, CBC #### [place] [address] [place] Lymphocytes/100 WBC (Bld) 34.0 % Normal . [facility] Comment on above: Order Comment: Reaso n for Exam RUQ abdominal pain;Nausea Performed By: #### C ELIAC #### [facility] , #### CMP, CBC #### [place] [address] MCH (RBC) [Entitic mass] 31.3 pg Normal 25.0-35.0 [facility] Comment on above: Order Comment: Reaso n for Exam RUQ abdominal pain;Nausea Performed By: #### C ELIAC #### [facility] , #### CMP, CBC #### [address] MCV (RBC) [Entitic vol] 89.7 fL Normal 78-98 [facility] Comment on above: Order Comment: Reaso n for Exam RUQ abdominal pain;Nausea Performed By: #### C ELIAC #### [facility] , #### CMP, CBC #### [address] Mean Corpuscular HGB Conc 34.9 g/dL Normal 31.0-37.0 [facility] Comment on above: Order Comment: Reaso n for Exam RUQ abdominal pain;Nausea Performed By: #### C ELIAC #### [facility] , #### CMP, CBC #### [address] Monocytes (Bld) [#/Vol] 0.6 10*3/uL Normal 0.1-1.00 [facility] Comment on above: Order Comment: Reaso n for Exam RUQ abdominal pain;Nausea Performed By: #### C ELIAC #### [facility] , #### CMP, CBC #### [address] Monocytes/100 WBC (Bld) 7.8 % Normal . [facility] Comment on above: Order Comment: Reaso n for Exam RUQ abdominal pain;Nausea Performed By: #### C ELIAC #### [facility] , #### CMP, CBC #### [place] [address] [place] Neutrophils (Bld) [#/Vol] 4.0 10*3/uL Normal 1.2-7.7 [facility] Comment on above: Order Comment: Reaso n for Exam RUQ abdominal pain;Nausea Performed By: #### C ELIAC #### [facility] , #### CMP, CBC #### [facility] [address] Neutrophils/100 WBC (Bld) 53.6 % Normal . [facility] Comment on above: Order Comment: Reaso n for Exam RUQ abdominal pain;Nausea Performed By: #### C ELIAC #### [facility] , #### CMP, CBC #### [facility] [address] [place] [address] [place] Nucleated RBC/100 WBC (Bld) [Ratio] 0.1 % Normal 0-0.5 [facility] Comment on above: Order Comment: Reaso n for Exam RUQ abdominal pain;Nausea Performed By: #### C ELIAC #### [facility] , #### CMP, CBC #### [facility] [address] [place] [address] [place] Platelet mean volume (Bld) [Entitic vol] 8.6 fL Normal 6.6-10.1 [facility] Comment on above: Order Comment: Reaso n for Exam RUQ abdominal pain;Nausea Performed By: #### C ELIAC #### [facility] , #### CMP, CBC #### [facility] [address] [place] [address] [place] Platelets (Bld) [#/Vol] 200 10*3/uL Normal 150-450 [facility] Comment on above: Order Comment: Reaso n for Exam RUQ abdominal pain;Nausea Performed By: #### C ELIAC #### [facility] , #### CMP, CBC #### [facility] [address] [place] [address] [place] RBC (Bld) [#/Vol] 5.08 10*6/uL Normal 4.50-5.30 [facility] Comment on above: Order Comment: Reaso n for Exam RUQ abdominal pain;Nausea Performed By: #### C ELIAC #### [facility] , #### CMP, CBC #### [facility] [address] WBC (Bld) [#/Vol] 7.6 10*3/uL Normal 4.5-13.5 [facility] Comment on above: Order Comment: Reaso n for Exam RUQ abdominal pain;Nausea Performed By: #### C ELIAC #### [facility] , #### CMP, CBC #### [facility] [address] Comprehensive Metabolic [facility] 02-13-2021 Albumin [Mass/Vol] 4.5 g/dL Normal 3.2-5.5 [facility] Comment on above: Order Comment: PT FA STED 10 1/2 HRS Reason for Exam RUQ abdominal pain;Nausea Performed By: #### C ELIAC #### [facility] , #### CMP, CBC #### [facility] [address] Albumin/Globulin [Mass ratio] 1.9 {ratio} Normal [facility] Comment on above: Order Comment: PT FA STED 10 1/2 HRS Reason for Exam RUQ abdominal pain;Nausea Performed By: #### C ELIAC #### [facility] , #### CMP, CBC #### [facility] [address] ALP [Catalytic activity/Vol] 68 U/L Normal 32-92 [facility] Comment on above: Order Comment: PT FA STED 10 1/2 HRS Reason for Exam RUQ abdominal pain;Nausea Result Comment: PERF ORMED BY: [place] [address] PATHOLOGIST TANK SHOP SUPERVISOR LISA KEENAN M.D. Performed By: #### C ELIAC #### [facility] , #### CMP, CBC #### [facility] [address] [place] [id number] [place] ALT [Catalytic activity/Vol] 18 U/L Normal 10-60 [facility] Comment on above: Order Comment: PT FA STED 10 1/2 HRS Reason for Exam RUQ abdominal pain;Nausea Performed By: #### C ELIAC #### [facility] , #### CMP, CBC #### [facility] [address] AST [Catalytic activity/Vol] 20 U/L Normal 10-42 [facility] Comment on above: Order Comment: PT FA STED 10 1/2 HRS Reason for Exam RUQ abdominal pain;Nausea Performed By: #### C ELIAC #### [facility] , #### CMP, CBC #### [place] [address] [place] Bilirubin [Mass/Vol] 1.4 mg/dL High 0.3-1.2 [facility] Comment on above: Order Comment: PT FA STED 10 1/2 HRS Reason for Exam RUQ abdominal pain;Nausea Result Comment: Samp les from patients who have taken Naproxen have shown spurious elevation in Total Bilirubin levels. A metabolite of Naproxen, O-desmethylnaproxen, has been shown to interfere with the Jendrassik-Grof method for measuring Total Bilirubin. Performed By: #### C ELIAC #### [facility] , #### CMP, CBC #### [facility] [address] [place] [address] [place] Calcium [Mass/Vol] 9.2 mg/dL Normal 8.2-10.2 [facility] Comment on above: Order Comment: PT FA STED 10 1/2 HRS Reason for Exam RUQ abdominal pain;Nausea Performed By: #### C ELIAC #### [facility] , #### CMP, CBC #### [facility] [address] [place] [address] [place] Chloride [Moles/Vol] 105 mmol/L Normal 95-114 [facility] Comment on above: Order Comment: PT FA STED 10 1/2 HRS Reason for Exam RUQ abdominal pain;Nausea Performed By: #### C ELIAC #### [facility] , #### CMP, CBC #### [facility] [address] CO2 [Moles/Vol] 27.5 mmol/L Normal 22.0-30.0 [facility] Comment on above: Order Comment: PT FA STED 10 1/2 HRS Reason for Exam RUQ abdominal pain;Nausea Performed By: #### C ELIAC #### [facility] , #### CMP, CBC #### [facility] [address] Creatinine [Mass/Vol] 1.04 mg/dL Normal 0.64-1.[address] [facility] Comment on above: Order Comment: PT FA STED 10 1/2 HRS Reason for Exam RUQ abdominal pain;Nausea Performed By: #### C ELIAC #### [facility] , #### CMP, CBC #### [facility] [address] Globulin (S) [Mass/Vol] 2.4 g/dL Normal [facility] Comment on above: Order Comment: PT FA STED 10 1/2 HRS Reason for Exam RUQ abdominal pain;Nausea Performed By: #### C ELIAC #### [facility] , #### CMP, CBC #### [facility] [address] Glucose [Mass/Vol] 92 mg/dL Normal 70-100 [facility] Comment on above: Order Comment: PT FA STED 10 1/2 HRS Reason for Exam RUQ abdominal pain;Nausea Result Comment: [place] Glucose Reference Range is dependent on time and content of last meal. Glucose of more than 200 mg/dL in a nonstressed, ambulatory subject supports the diagnosis of Diabetes Mellitus. ADA recommended reference range Performed By: #### C ELIAC #### [facility] , #### CMP, CBC #### [facility] [address] Potassium [Moles/Vol] 4.2 mmol/L Normal 3.5-5.[address] [facility] Comment on above: Order Comment: PT FA STED 10 1/2 HRS Reason for Exam RUQ abdominal pain;Nausea Performed By: #### C ELIAC #### [facility] , #### CMP, CBC #### [facility] [address] [place] [address] Protein [Mass/Vol] 6.9 g/dL Normal 6.1-7.9 [facility] Comment on above: Order Comment: PT FA STED 10 1/2 HRS Reason for Exam RUQ abdominal pain;Nausea Performed By: #### C ELIAC #### [facility] , #### CMP, CBC #### [facility] [address] [place] [address] Sodium [Moles/Vol] 139 mmol/L Normal 138-145 [facility] Comment on above: Order Comment: PT FA STED 10 1/2 HRS Reason for Exam RUQ abdominal pain;Nausea Performed By: #### C ELIAC #### [facility] , #### CMP, CBC #### [facility] [address] [place] [address] Urea nitrogen [Mass/Vol] 19 mg/dL Normal 9-23 [facility] Comment on above: Order Comment: PT FA STED 10 1/2 HRS Reason for Exam RUQ abdominal pain;Nausea Performed By: #### C ELIAC #### [facility] , #### CMP, CBC #### [facility] [address] [place] [address] NM gastric emptying studyon 02-13-2021 NM gastric emptying study [facility] [address] [place] [address] [place] [address] Nuclear Medicine Report Signed Patient: Kimberly Cleaning MR#: [id number] : 2005 Acct:[id number] Age/Sex: 15 / M ADM Date: 02/13/21 Loc: [place] Room: Type: [facility] Attending Dr: Nitesh Benítez DO Ordering Provider: Nitesh Benítez Jr, DO Date of Service: 02/13/21 NM/NM gastric emptying study: RUQ abdominal pain;Nausea Copies to: NICOEL MARINA Jr, DO Young Kyu Hong, MD GASTRIC EMPTYING STUDY CLINICAL INFORMATION: Right upper quadrant pain, nausea. TECHNIQUE AND FINDINGS: Following oral administration of 1.0 mCi of technetium 99m Sulfur colloid mixed in the Oatmeal multiple scintigraphic images were obtained in the upper abdomen for 90 minutes. There appears unremarkable emptying of the stomach with normal appearing time/activity curve. The T1/2 measures 39 minutes. NM/NM gastric emptying study IMPRESSION: UNREMARKABLE GASTRIC EMPTYING. Impression dictated by: Dallas Pires M.D.02/13/2021 1:55 PM Dictation Location: [place] [address] Transcribed By: [facility] 02/13/21 1355 Dictated By: Dallas Pires MD 02/13/21 1355 Signed By: 02/13/[address] [facility] 05-13-2019 No acute osseous abnormality of the left ankle. No acute osseous abnormality of the left foot. [place], [place] EXAMINATION: THREE XRAY VIEWS OF THE LEFT FOOT; THREE XRAY VIEWS OF THE LEFT ANKLE 05/13/2019 8:44 pm COMPARISON: None. HISTORY: ORDERING SYSTEM PROVIDED HISTORY: pain after injury TECHNOLOGIST PROVIDED HISTORY: pain after injury; ORDERING SYSTEM PROVIDED HISTORY: pain s/p injury TECHNOLOGIST PROVIDED HISTORY: pain s/p injury FINDINGS: Left ankle, three views: No acute fracture or dislocation. The ankle mortise and talar dome are maintained. No focal soft tissue abnormality. Left foot, three views: No acute fracture or dislocation. Lisfranc alignment is maintained. Joint spaces are preserved. There is no focal soft tissue findings. [facility] [place] [place] Doug, [facility] Incoming Radiant Results From [employer] - 05/13/2019 8:52 PM EDT EXAMINATION: THREE XRAY VIEWS OF THE LEFT FOOT; THREE XRAY VIEWS OF THE LEFT ANKLE 05/13/2019 8:44 pm COMPARISON: None. HISTORY: ORDERING SYSTEM PROVIDED HISTORY: pain after injury TECHNOLOGIST PROVIDED HISTORY: pain after injury; ORDERING SYSTEM PROVIDED HISTORY: pain s/p injury TECHNOLOGIST PROVIDED HISTORY: pain s/p injury FINDINGS: Left ankle, three views: No acute fracture or dislocation. The ankle mortise and talar dome are maintained. No focal soft tissue abnormality. Left foot, three views: No acute fracture or dislocation. Lisfranc alignment is maintained. Joint spaces are preserved. There is no focal soft tissue findings. IMPRESSION: No acute osseous abnormality of the left ankle. No acute osseous abnormality of the left foot. [employer] [place] Vital Signs Date Time Vital Sign Value Performing Clinician Facility 12-11-2022 20:30-0400 Diastolic blood pressure 85 mm[Hg] Lee Cartwright MD Work Phone: [facility] 12-11-2022 20:30-0400 Heart rate 82 /min Lee Cartwright MD Work Phone: [facility] 12-11-2022 20:30-0400 SaO2% (BldA) [Mass fraction] 97 % Lee Cartwright MD [facility] 12-11-2022 20:30-0400 Systolic blood pressure 132 mm[Hg] Lee Cartwright MD Work Phone: [facility] 12-11-2022 19:35-0400 Body mass index (BMI) [Ratio] 26.63 kg/m2 Lee Cartwright MD Work Phone: [facility] [employer] 12-11-2022 19:35-0400 Body temperature 97.3 [degF] Lee Cartwright MD Work Phone: [facility] [employer] 12-11-2022 19:35-0400 Body weight 77.11 kg Lee Cartwright MD Work Phone: [facility] [employer] 12-11-2022 19:35-0400 Respiratory rate 16 /min Lee Cartwright MD Work Phone: [employer] 10-05-2022 21:33-0400 Body height 170.2 cm Julia Clark DO Work Phone: [facility] 10-05-2022 21:33-0400 Body mass index (BMI) [Ratio] 23.49 kg/m2 Julia Clark DO Work Phone: [facility] 10-05-2022 21:33-0400 Body temperature 98.71 [degF] Julia Clark DO Work Phone: [facility] 10-05-2022 21:33-0400 Body weight 68.04 kg Julia Clark DO Work Phone: [employer] 10-05-2022 21:33-0400 Diastolic blood pressure 91 mm[Hg] Julia Clark DO Work Phone: [facility] 10-05-2022 21:33-0400 Heart rate 94 /min Julia Clark DO Work Phone: [employer] 10-05-2022 21:33-0400 Respiratory rate 16 /min Julia Clark DO Work Phone: [employer] 10-05-2022 21:33-0400 SaO2% (BldA) [Mass fraction] 98 % Julia Clark DO Work Phone: [employer] 10-05-2022 21:33-0400 Systolic blood pressure 141 mm[Hg] Julia Clark DO Work Phone: [employer] 08-14-2022 13:30-0500 Body height 170.18 cm Nicole Marina Other [employer] Other 08-14-2022 13:30-0500 Body mass index (BMI) [Ratio] 23.49 kg/m2 Nicole Marina Other [employer] Other 08-14-2022 13:30-0500 Body temperature 98.7 [degF] Nicole Marina Other [employer] Other 08-14-2022 13:30-0500 Body weight 68.04 kg Nicole Marina Other [employer] Other 08-14-2022 13:30-0500 Respiratory rate 18 /min Niocle Marina Other [employer] Other 08-14-2022 13:30-0500 SaO2% (BldA) [Mass fraction] 98 % Nicole Marina Other [employer] Other 09-12-2021 12:30-0500 Body height 170.18 cm Nicole Marina Other [employer] Other 09-12-2021 12:30-0500 Body mass index (BMI) [Ratio] 22.71 kg/m2 Nicole Marina Other [employer] Other 09-12-2021 12:30-0500 Body temperature 98.9 [degF] Nicole Marina Other [facility] Other 09-12-2021 12:30-0500 Body weight 65.77 kg Nicole Marina Other [facility] Other 09-12-2021 12:30-0500 Diastolic blood pressure 69 mm[Hg] Nicole Marina Other [facility] Other 09-12-2021 12:30-0500 Respiratory rate 18 /min Nicole Marina Other [facility] Other 09-12-2021 12:30-0500 SaO2% (BldA) [Mass fraction] 100 % Nicole Marina Other [facility] Other 09-12-2021 12:30-0500 Systolic blood pressure 103 mm[Hg] Nicole Marina Other [facility] Other 08-22-2021 14:00-0500 Body height 170.18 cm Nicole Marina Other [facility] Other 08-22-2021 14:00-0500 Body mass index (BMI) [Ratio] 22.71 kg/m2 Nicole Marina Other [facility] Other 08-22-2021 14:00-0500 Body temperature 97.5 [degF] Nicole Marina Other [facility] Other 08-22-2021 14:00-0500 Body weight 65.77 kg Nicole Marina Other [facility] Other 08-22-2021 14:00-0500 Diastolic blood pressure 66 mm[Hg] Nicole Mongeault Other [facility] Other 08-22-2021 14:00-0500 Respiratory rate 18 /min Nicole Marina Other [facility] Other 08-22-2021 14:00-0500 SaO2% (BldA) [Mass fraction] 100 % Nicole Mongeault Other [facility] Other 08-22-2021 14:00-0500 Systolic blood pressure 107 mm[Hg] Nicole Marina Other [facility] Other 04-15-2021 16:30-0400 Body height 172.72 cm Nicole Marina Other [facility] Other 04-15-2021 16:30-0400 Body mass index (BMI) [Ratio] 22.65 kg/m2 Nicole Marina Other [facility] Other 04-15-2021 16:30-0400 Body temperature 98.4 [degF] Nicole Marina Other [facility] Other 04-15-2021 16:30-0400 Body weight 67.59 kg Nicole Marina Other [facility] Other 04-15-2021 16:30-0400 Diastolic blood pressure 57 mm[Hg] Nicole Marina Other [facility] Other 04-15-2021 16:30-0400 Respiratory rate 18 /min Nicole Marina Other [facility] Other 04-15-2021 16:30-0400 SaO2% (BldA) [Mass fraction] 99 % Nicole Marina Other [facility] Other 04-15-2021 16:30-0400 Systolic blood pressure 106 mm[Hg] Nicole Marina Other [facility] Other 04-05-2021 19:56-0400 Body temperature 97.5 [degF] [employer] Work Phone: [facility] Work Phone: 04-05-2021 19:56-0400 Heart rate 71 /min Leo Chicas Work Phone: [employer] Work Phone: 04-05-2021 19:56-0400 Respiratory rate 16 /min Leo Chicas Work Phone: [employer] Work Phone: 04-05-2021 19:56-0400 SaO2% (BldA) [Mass fraction] 100 % Leo Chicas Work Phone: [employer] Work Phone: 05-13-2019 20:33-0400 Body Temperature 97.5 [degF] [place] 05-13-2019 20:33-0400 BP Diastolic 80 mm[Hg] Leo Gilli[employer] [place] 05-13-2019 20:33-0400 BP Systolic 120 mm[Hg] [place] 05-13-2019 20:33-0400 Pulse (Heart Rate) 74 /min Leo Chicas [id number] 05-13-2019 20:33-0400 Pulse Oximetry 100 % Leo GilliamGlobal [employer] [place], [place] 05-13-2019 20:33-0400 Respiratory Rate 14 /min Leo Chicas [id number] [place] Encounters Encounter Date Encounter Type Care Provider Facility Start: 12-29-2023 End: 12-29-2023 ambulatory VINAY D DOLCE Not Available Start: 12-15-2023 End: 12-15-2023 ambulatory VINAY D DOLCE Not Available Start: 12-09-2023 End: 12-10-2023 ambulatory MEDICAL SERVICE TECHNICIAN NICOLE MARINA [place] [place]: 02-27-2023 End: 02-28-2023 Emergency department patient visit NICOLEMED MARINA [facility] Start: 02-10-2023 End: 02-11-2023 [facility] Start: 02-10-2023 End: 02-10-2023 Subsequent hospital visit by physician Nicole Marina 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 TUNER - 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 Work Phone: [facility] Start: 12-11-2022 End: 12-11-2022 Emergency department patient visit LEE CARTWRIGHT [facility] Start: 12-11-2022 End: 12-11-2022 Emergency department patient visit Lee Cartwright MD Work Phone: [facility] ED Comment on above: Sprain of right ankl e, unspecified ligament, sequela (Primary Dx) Start: 10-06-2022 End: 10-06-2022 Emergency department patient visit JULIA CLARK [facility] Start: 10-05-2022 End: 10-05-2022 Emergency department patient visit Julia Clark DO Work Phone: [facility] ED Comment on above: Fall, initial encoun ter (Primary Dx); Left wrist pain Start: 08-14-2022 End: 08-14-2022 ambulatory Nicole Marina Other [facility] Other Start: 08-14-2022 Office outpatient vi sit 15 minutes Nicole Marina [facility] Start: 10-16-2021 End: 10-16-2021 ambulatory Nicole Marina Other [facility] Other Start: 10-16-2021 Telephone encounter Nicole michel [facility] Start: 09-16-2021 Encounter for genera l adult medical examination without abnormal findings NICOLE MARINA [facility] Start: 09-12-2021 End: 09-13-2021 ambulatory NICOLE MARINA Facility:[facility] Start: 09-12-2021 End: 09-13-2021 Encounter for general adult medical examination without abnormal findings NICOLE MARINA Facility:[facility] Start: 09-12-2021 Office outpatient vi sit 15 minutes Nicole Marina [facility] Start: 08-22-2021 End: 08-22-2021 ambulatory Nicole Marina Other [facility] Other Start: 08-22-2021 Office outpatient vi sit 15 minutes Nicole Laina [facility] Start: 04-15-2021 Encounter for routin e child health examination without abnormal findings Nicole Marina [facility] Start: 04-15-2021 Initial preventive medicine new pt age 12-17 yr Nicole Marina [facility] Start: 04-05-2021 End: 04-05-2021 Emergency department patient visit Leo Chicas Work Phone: [facility] ED Comment on above: Acute right ankle pa in (Primary Dx) Start: 03-19-2021 End: 03-19-[address] GUNJAN MCKENZIE Facility:[facility] Start: 05-13-2019 End: 05-13-2019 Emergency department patient visit Leo Chicas [facility] ED Comment on above: Injury of left ankle , initial encounter (Primary Dx) Procedures Date Procedure Procedure Detail Performing Clinician Start: 02-10-2023 Ecg routine ecg w/le ast 12 lds w/i&r Franco [employer] DYNAMOMETER TUNER - [employer] Work Phone: Start: 02-10-2023 Basic metabolic pane l calcium total [employer] DYNAMOMETER TUNER - [employer] Work Phone: Start: 10-05-2022 End: 10-05-2022 Radex wrist complete minimum 3 views Julia Clark DO Work Phone: Start: 04-05-2021 End: 04-05-2021 Radiologic examination tibia & fibula 2 views Ash Cespedes PA-C Work Phone: Start: 05-13-2019 Radex foot complete minimum 3 views [employer] Work Phone: Start: 05-13-2019 Radex ankle complete minimum 3 views [employer] Work Phone: Plan of Treatment Date Care Activity Detail Author Start: 06-28-2026 DTaP/Tdap/Td vaccine (2 - Td or Tdap) DTaP/Tdap/Td vaccine (2 - Td or Tdap) [facility] Start: 02-10-2023 Influenza vaccination B [facility] Start: 02-10-2022 Influenza vaccination Flu vaccine (# 1) [facility] Start: 2021 Hepatitis C screening Hepatitis C sc reen [facility] Start: 03-13-2021 Influenza vaccination Flu vaccine (# 1) [facility] [employer] Phone: Start: 2019 Meningococcal (ACWY) Vaccine (1 - 2-dose series) Meningococcal (ACWY) Vaccine (1 - 2-dose series) [place], [place] Start: 03-13-2019 Influenza vaccination Flu vaccine (# 1) [place] Start: 2018 HIV screen HIV screen [place], [place] Start: 2018 HIV screening HIV screen [facility] Start: 2018 HPV vaccine (1 - Mal e 3-dose series) HPV vaccine (1 - Male 3-dose series) [place] Start: 07-26-2016 DTaP/Tdap/Td vaccine (2 - Td or Tdap) DTaP/Tdap/Td vaccine (2 - Td or Tdap) [facility] [employer] Phone: Start: 07-26-2016 DTaP/Tdap/Td vaccine (2 - Td) DTaP/Tdap/Td vaccine (2 - Td) [place] Start: 2016 Varicella Vaccine (1 of 2 - 13+ 2-dose series) Varicella Vaccine (1 of 2 - 13+ 2-dose series) [place] Start: 2015 COVID-19 Vaccine (1) COVID-19 Vaccin e (1) [facility] [employer] Phone: Start: 2015 Depression Screen Depression Screen [facility] Start: 2014 HPV vaccine (1 - Mal e 2-dose series) HPV vaccine (1 - Male 2-dose series) [facility] Start: 08-14-2012 Hepatitis A vaccine (2 of 2 - 2-dose series) Hepatitis A vaccine (2 of 2 - 2-dose series) [facility] Start: 2004 Hepatitis A vaccine (1 of 2 - 2-dose series) Hepatitis A vaccine (1 of 2 - 2-dose series) [place] Start: 2004 Measles,Mumps,Rubell a (MMR) vaccine (1 of 2 - Standard series) Measles,Mumps,Rubella (MMR) vaccine (1 of 2 - Standard series) [place] Start: 2004 Varicella vaccine (1 of 2 - 2-dose childhood series) Varicella vaccine (1 of 2 - 2-dose childhood series) [facility] [employer] Phone: Start: 2003 COVID-19 Vaccine (#1) COVID-19 Vacci ne (#1) [facility] Start: 2003 Polio vaccine 0-18 ( 1 of 3 - 4-dose series) Polio vaccine 0-18 (1 of 3 - 4-dose series) [place] Start: 2003 Hepatitis B Vaccine (1 of 3 - 3-dose primary series) Hepatitis B Vaccine (1 of 3 - 3-dose primary series) [place] Start: 2003 Hepatitis C screening Hepatitis C sc reen [facility] [employer] Phone: EKG 12 Lead EKG 12 Lead ECG Routine 02/10/2023 11:31 AM EDT [facility] [employer] Phone: End: 05-13-2019 Splint application Splint application Procedures STAT One Time for 1 Occurrences starting 05/13/2019 until 05/13/2019 [place], [place] Comment on above: One Time for 1 Occur rences starting 05/13/2019 until 05/13/2019 End: 12-11-2022 XR ANKLE RIGHT (MIN 3 VIEWS) [facility] Comment on above: Once for 1 Occurrenc es starting 12/11/2022 until 12/11/2022 Immunizations Immunization Date Immunization Notes Care Provider Drake kim 04-20-2020 influenza, injectabl e, quadrivalent, contains preservative Nicole Marina Other [facility] Other 05-03-2018 meningococcal polysaccharide (groups A, C, Y and W-135) diphtheria toxoid conjugate vaccine (MCV4P) Nicole Mongeault Other [facility] Other 06-28-2016 tetanus toxoid, redu juventino diphtheria toxoid, and acellular pertussis vaccine, adsorbed [facility], [place] 02-12-2012 hepatitis A vaccine, pediatric/adolescent dosage, 2 dose schedule Nicole Laina Other [facility] Other 07-24-2011 measles, mumps and rubella virus vaccine Nicole Mongeault Other [facility] Other 07-24-2011 varicella virus vaccine Mikey Mongeault Other [facility] Other 03-03-2008 diphtheria, tetanus toxoids and pertussis vaccine Nicole Mongeault Other [facility] Other 03-03-2008 varicella virus vaccine Mikey Mongeault Other [facility] Other 10-28-2004 diphtheria, tetanus toxoids and pertussis vaccine Nicole Mongeault Other [facility] Other 10-28-2004 poliovirus vaccine, unspecified formulation Nicole Laina Other [facility] Other 07-30-2004 measles, mumps and rubella virus vaccine Nicole Mongeault Other [employer] Other 2003 diphtheria, tetanus toxoids and pertussis vaccine Nicole Laina Other [facility] Other 2003 hepatitis B vaccine, pediatric or pediatric/adolescent dosage Nicoletrena Marina Other [facility] Other 2003 poliovirus vaccine, unspecified formulation Nicolemed Marina Other [facility] Other 2003 diphtheria, tetanus toxoids and pertussis vaccine Nicolemed Marina Other [facility] Other 2003 poliovirus vaccine, unspecified formulation Nicolemed Marina Other [facility] Other 2003 diphtheria, tetanus toxoids and pertussis vaccine Nicole Marina Other [facility] Other 2003 hepatitis B vaccine, pediatric or pediatric/adolescent dosage Nicolemed Marina Other [facility] Other 2003 poliovirus vaccine, unspecified formulation Nicolemed Marina Other [facility] Other 2003 hepatitis B vaccine, pediatric or pediatric/adolescent dosage Nicole Laina Other [facility] Other Payers Date Payer Category Payer Unknown [id number] 2022 Private Health Insurance [id number] 2018 Unknown [id number] 2003 Unknown [id number] 2.16.8 [id number] 2003 Unknown [id number] 2.16.8 [id number] 2003 Unknown [id number] 2.16.8 [id number] 2003 Unknown [id number] 2.16.8 [id number] 2003 Unknown [id number] 2.16.8 [id number] 2003 Unknown [id number] 2.16.8 [id number] 2003 Unknown [id number] 2.16.84 [id number] 2003 Unknown [id number] 2.16.84 [id number] 1979 Unknown [id number] 2.16.84 [id number] 1979 Unknown [id number] 2.16.84 [id number] 1959 Private Health Insurance [id number] 1959 Unknown [id number] 1959 Unknown [id number] Social History Date Type Detail Facility Start: 05-13-2019 End: 10-05-2022 Tobacco smoking status [facility] Never smoker [employer] Start: 2003 Sex Assigned At Not on file M [facility], [place] Start: 05-13-2019 End: 10-05-2022 Tobacco use and exposure Never used [facility] Start: 09-25-2022 End: 10-05-2022 Exposure to SARS-CoV-2 (event) Not sure [facility] Sex Assigned At Sex Assigned At Bir th [facility] Other Start: 10-05-2022 End: 12-11-2022 Alcohol intake Ex-drinker (finding) [facility] Work Phone: Start: 10-06-2022 End: 12-11-2022 History SDOH Alcohol Frequency 1 [facility] [employer] Work Phone: Start: 10-06-2022 End: 12-11-2022 History SDOH Alcohol Std Drinks 0 [facility] [employer] Phone: Clinical Notes 04-15-2021 to 10-05-2022 Discharge Instructions Note Date & Type Note Facility 10-05-2022 Hospital Discharg e instructions Julia Clark DO - 10/05/2022 11:12 PM EDT Please keep your splint/brace in place, to immobilize the wrist. And follow-up with Dr. Almazan for repeat x-ray in 1 week. Okay to take Tylenol, and Motrin at home and apply ice over the splint to help with pain and elevate when able. Return to the ER for worsening pain, numbness, tingling or weakness. documented in this encounter [facility] [employer] Phone: 08-14-2022 Evaluation note Encounter Date Diagnosis Assessment Notes Aug, Right acute otitis media (ICD-10 - H66.91) Ear infections are often a secondary infection caused from an URI, the flu or allergies. Take medication as directed. Complete all doses, even if you feel better. Tylenol or ibuprofen can help with pain. Warm pack to area for comfort helps as well. Follow up with primary care provider if no improvement of symptoms. [facility] Other 03-03-2022 Evaluation note* Encounter Date Diagnosis Assessment Notes Treatment Notes Treatment Clinical Notes Sep, Loose body in right ankle (ICD-10 - M24.071) Xray shows possible loose body. Referral placed to ortho since pain has become chronic in nature. Sep, Wellness examination (ICD-10 - Z00.00) Sep, Injury of right ankle, subsequent encounter (ICD-10 - S99.911D) Referal being sent and paperwork to [facility] and they should contact you to help set up appointment due to nature of injury since this has been going on for so long and no relief. [facility] Other 02-10-2022 Evaluation note* Encounter Date Diagnosis Assessment Notes Treatment Notes Treatment Clinical Notes Aug, Pain in right ankle and joints of right foot (ICD-10 - M25.571) Aug, Loose body in right ankle (ICD-10 - M24.071) Xray shows possible loose body. Referral placed to ortho since pain has become chronic in nature. [facility] Other 10-04-2021 Evaluation note* Encounter Date Diagnosis Assessment Notes Treatment Notes Treatment Clinical Notes Apr, Encounter for routine child health examination without abnormal findings (ICD-10 - Z00.129) Apr, Routine sports physical exam (ICD-10 - Z02.5) Paperwork scanned. Per information provided today in office pt should have no problems participating in school, sports or working. Recommend follow up for regular checkups with primary care provider and routine immunization schedules Apr, RYNE (generalized anxiety disorder) (ICD-10 - F41.1) Today during the appointment we discussed depression and emotions. We talked about treatment options that include both counseling and medication interventions. When we first start treatment, it is common to have to be seen more frequently as we figure out the best treatment regimen that fits you as an individual. We will be able to space out appointments more once we find what works for you. If at any time you feel like your symptoms have increased in severity or you want to hurt yourself, please never hesitate to contact us and we will get you in to be seen. Also always know the [facility] Emergency Number is 24 hours a day available, even on holidays there is someone you can reach out to. Also we will check other labs yearly to screen for other health issues. Please remember we are a team and your opinion is very important in all of your healthcare decisions [facility] Other Evaluation note* Diagnosis Acute right ankle pain- Primary documented in this encounter [employer] Phone: evaluation noteNo InformationNort [employer] Other Evaluation note* Diagnosis Fall, initial encounter- Primary Left wrist pain Pain in joint, forearm documented in this encounter [facility] [employer] Phone: evalplxgnt note* Diagnosis Sprain of right ankle, unspecified ligament, sequela- Primary documented in this encounter [facility] [employer] Phone: History general Narrative - Reported* Type Description Date Medical History non verbal learning disorder Surgical History scope [facility] Other [employer] general Narrative - Reported* Type Description Date Medical History non verbal learning disorder Surgical History scope Surgical History Dental Surgery front tooth jacques melissa Hospitalization History ER for Right ankle Sprai n 2020 Hospitalization History see above [facility] Other Hospital Discharge instructions* Attachments The following attachments cannot be sent through Care Everywhere. * Musculoskeletal Pain (Djiboutian) * Joint Pain ([place]jiboutian) [facility] Phone: Hospital Discharge instructions* Attachments The following attachments cannot be sent through Care Everywhere. * RICE: Rest - Ice - Compression - Elevation: Video (Djiboutian) * Ankle Sprain (Djiboutian) [facility] [employer] Phone: Discharge Instructions * Instructions* Areli Miller PA-C - 05/13/2019 Rest ice and elevate your ankle. Keep splint in place. Follow-up with Dr. Almazan next week for evaluation. * Attachments The following attachments cannot be sent through Care Everywhere. * Ankle Sprain: Teen (Djiboutian) documented in this encounter Assessments Diagnosis Injury of left ankle, initial encounter- Primary Advance Directives No Advanced Directives Records FoundDocuments on File Type Date Recorded Patient Entry Level Project Coordinator Expl anation Advance Directives and Living Will Power of Home Health Travel Pt Documents on File Type Date Recorded Patient Entry Level Project Coordinator Expl anation ACP-Advance Directive ACP-Power of Home Health Travel Pt Summary Purpose Family History No Family History Records FoundNo Family History Records FoundNo Family History Records FoundNo Family History Records FoundNo Family History Records FoundNo Family History Records FoundNo Family History Records FoundNo Family History Records FoundNo Family History Records FoundNo Family History Records Found Reason for Referral Reason Please call Dr. Augie zamudio's office in [place] Diagnosis 1 Loose body in right ankle (M24.071) Referral Organization [facility] Family Violeta liza [place]una[place] Referring Provider First Name Nicole Referring Provider Last Name Laina Referring Provider Specialty Nurse Pract ryan Referred Organization [facility] Referred Address ,[place],[address] Referred Provider Specialty Orthopedic S urgery Referral Priority Routine Additional Source Comments Reason for Visit (unrecogniz ed section and content) Reason Comments Ankle Pain left ankle pain. pat ient rolled ankle around 5pm tonight Reason Comments Ankle Injury right medial, during soccer. Reason Comments Hand Injury Wrist Injury Patient reported tri p over gas hose and fell landed on right hand around 9am today. Patient reports pain to left hand/wrist. Reason Comments Ankle Pain Pt states I think I broke my right ankle in March but never got it checked out Scheduled Active and Recently Administ ered Medications (unrecognized section and content) Medication Order 04/03/2021 04/04/2021 04/05/2021 ibuprofen (ADVIL;MOTRIN) tablet 400 mg (COMPLETED) 400 mg, Oral, ONCE, On 04/05/21 at 2044, For 1 dose, Do not crush or chew. 2133 (Given - Provid er: Lynn Sin RN) Scheduled Medication Order 12/09/2022 12/10/2022 12/11/2022 ketorolac (TORADOL) injection 30 mg (COMPLETED) 30 mg, IntraMUSCular, ONCE, 1 dose, On Jeniffer 12/11/22 at 2015, Do not administer for more than 5 days. 2008 (Given - Provid er: Gilbert Dyer RN) (unrecognized sect ion and content) No Status Records FoundNo Status Records FoundNo Status Records FoundNo Status Records FoundNo Status Records FoundNo Status Records FoundNo Status Records FoundNo Status Records FoundNo Status Records FoundNo Status Records Found INFORMATION SOURCE (unrecogn ized section and content) DATE CREATED AUTHOR 09/18/[address] [facility] DATE CREATED AUTHOR AUTHOR'S ORGANIZ ATION 09/23/2021 [facility] DATE CREATED AUTHOR AUTHOR'S ORGANIZ ATION 02/10/2022 [facility] DATE CREATED AUTHOR AUTHOR'S ORGANIZ ATION 02/28/2023 [facility] DATE CREATED AUTHOR AUTHOR'S ORGANIZ ATION 12/10/2023 Sherwin Watson [facility] DATE CREATED AUTHOR AUTHOR'S ORGANIZ ATION 12/30/2023 [facility] Care Teams (unrecognized sec tion and content) Contour Band Saw Operator Vertical Relationship Specialty Start Date End [place] [address] PCP - General 06/28/16 Contour Band Saw Operator Vertical Relationship Specialty Start Date End Date Nicole MarinaMAYRAN - 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 [address] [place] [address] PCP - General Nurse Practitioner 12/11/22 Contour Band Saw Operator Vertical Relationship Specialty Start Date End Date LainaNicole DYNAMOMETER TUNER - 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 [address] [place] [address] PCP - General Nurse Practitioner 12/11/22 Contour Band Saw Operator Vertical Relationship Specialty Start Date End Date Nicole Marina DYNAMOMETER TUNER - 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 [address] [place] [address] PCP - General Nurse Practitioner 12/11/22 FOR RECORDS PERTAINING TO PATIENTS WHO ARE OR HAVE BEEN ENROLLED IN A CHEMICAL DEPENDENCY/SUBSTANCEABUSE PROGRAM, SOME INFORMATION MAY BE OMITTED. This clinical summary was aggregated from multiple sources. Caution should be exercised in using it in the provision of clinical care. This summary normalizes information from multiple sources, and as a consequence, information in this document may materially change the coding, format and clinical context of patient data. In addition, data may be omitted in some cases. CLINICAL DECISIONS SHOULD BE BASED ON THE PRIMARY CLINICAL RECORDS. [employer] provides no warranty or guarantee of the accuracy or completeness of information in this document.
[2024-08-21] MEDS: 0.9 % SODIUM CHLORIDE 1,000 ML 1000 ML IV (13:59)
[2024-08-21] MEDS: ONDANSETRON PF 4 MG/2 ML VIAL IV (13:59)
[2024-08-21] MEDS: FAMOTIDINE/PF 20 MG/2 ML VIAL IV (13:59)
[2024-08-21 14:04] LABS: Hematocrit 50.9 % (42.0-54.0); Hemoglobin 17.2 g/dL (14.0-18.0); Mean Corpuscular HGB Conc 33.8 g/dL (29.9-35.2); Mean Corpuscular Hemoglobin 29.5 pg (25.9-34.0); Mean Corpuscular Volume 87.3 fL (80.0-94.0); Mean Platelet Volume 10.4 fL (9.5-13.5); Platelet Count 304 10^3/uL (150-450); Red Blood Count 5.83 10^6/uL (4.70-6.10); Red Cell Distribution Width 13.6 % (11.0-15.0)
--- NOTE | 2024-08-21 14:11 | CT_ITS ---
The [address] [address] Patient Name: KIMBERLY MONTANEZ MRN: [id number] date: 2005 Sex: M Assigned Patient Location: ER Current Patient Location: ER Accession/Order Number: [id number] Exam Date: 08/21/2024 14:28 Report Date: 08/21/2024 15:23 At the request of: WILEY QUAN Procedure: CT abdomen pelvis wo con EXAM: CT abdomen pelvis wo con HISTORY: lower abd pain . Diarrhea. Vomiting. COMPARISON: None. TECHNIQUE: Unenhanced helical acquisition obtained through the abdomen and the pelvis. FINDINGS: The visualized lung bases and the pleural spaces are clear. Unremarkable gallbladder. No significant biliary ductal dilatation. Allowing for the lack of intravenous contrast, the liver, spleen, pancreas and the adrenal glands are unremarkable. No renal or ureteral calculi are identified. No enlarged lymph nodes within the abdomen. No enlarged lymph nodes within the pelvis. No ascites or focal intraperitoneal fluid collections. Diverticulum noted involving the distal descending colon. No diverticulitis. Normal appendix. CT/CT abdomen pelvis wo con IMPRESSION: 1. Unremarkable appearance of small and large bowel. Normal appendix. A solitary descending colonic diverticulum. No diverticulitis. 2. No renal or ureteral calculi. Electronically authenticated by: TJ BARTON Date: 08/21/2024 15:23
[2024-08-21 14:19] LABS: Alanine Aminotransferase 39 U/L (16-63); Albumin Globulin Ratio 1.2; Albumin Level 4.6 g/dL (3.4-5.0); Alkaline Phosphatase 106 U/L (46-116); Anion Gap 19.8; Aspartate Amino Transferase 19 U/L (15-37); BUN Creatinine Ratio 29.1; Bilirubin Total 0.7 mg/dL (0.2-1.0); Calcium 9.7 mg/dL (8.5-10.1); Carbon Dioxide 22.6 mmol/L (21.0-32.0); Chloride 103 mmol/L (98-107); Estimated GFR (African America >60 (>=60 mL/min/1.73m^2); Estimated GFR (Non-African Ame >60 (>=60 mL/min/1.73m^2); Globulin 3.8 g/dL; Glucose 123 mg/dL (74-106); Potassium 4.4 mmol/L (3.5-5.1); Sodium 141 mmol/L (136-145); Total Protein 8.4 g/dL (6.4-8.2)
[2024-08-21 14:24] LABS: Band Neutrophils Absolute 0.4 10^3/uL (0.0-0.3); Lymphocytes Absolute Manual 0.72 10^3/uL (1.20-3.80); Monocytes Absolute Manual 0.54 10^3/uL (0.30-0.80); Segmented Neut Absolute Manual 16.38 10^3/uL (1.4-6.5)
--- NOTE | 2024-08-21 14:40 | ED.NAVMDI1 ---
HPI - Nausea/Vomiting/Diarrhea General Chief complaint: Nausea/Vomiting/Diarrhea Stated complaint: VOMITING, DIARRHEA, ABDOMINAL PAIN Time Seen by Provider: 08/21/24 13:43 Source: patient Mode of arrival: walk-in History of Present Illness HPI Narrative: The patient is a 19-year-old male is coming to the ER with nausea vomiting and diarrhea that started earlier this morning, mentioned that he vomited at least 7-8 times, patient denies any fever or chills he does have his significant other at the bedside who had similar symptoms of nausea vomiting and diarrhea over the last few days But the patient is complaining also of lower abdominal pain mostly right lower and he is concerned about his appendix Patient have some epigastric discomfort but he also mentioned that he have history of ulcer Related Data Home Medications ?Medication ?Instructions ?Recorded ?Confirmed No Known Home Medications 09/21/23 09/21/23 Previous Rx's ?Medication ?Instructions ?Recorded famotidine 20 mg tablet (Pepcid) 20 mg PO BID #14 tabs 08/21/24 ondansetron 4 mg disintegrating 4 mg PO Q8H PRN nausea and 08/21/24 tablet vomiting 3 days #10 tabs Allergies Allergy/AdvReac Type Severity Reaction Status Date / Time cefuroxime (From Ceftin) Allergy Severe Verified 09/21/23 11:40 Penicillins Allergy Severe Verified 09/21/23 11:40 Review of Systems ROS Status of ROS 10 or more systems reviewed and unremarkable except as noted in history and below PFSH PFSH Social History Little interest or pleasure in doing things: not at all Feeling down, depressed, or hopeless: not at all Exam Narrative Exam Narrative: Nurses notes and vital signs reviewed and patient is not hypoxic. General: Well-appearing and in no apparent distress. Skin: Warm, dry, no pallor noted. No rash. Head: Normocephalic, atraumatic. Neck: Supple, non-tender. Eye: Pupils are equal, round and EOMI. No scleral icterus. Ears, Nose, Mouth, and Throat: TM are clear, no nasal mucosal hypertrophy. Oral mucosa is moist, no posterior oropharynx erythema, uvula is mid-line Cardiovascular: Regular Rate and Rhythm without murmur, gallop or rub. Respiratory: No accessory muscle use or respiratory distress. Lungs are clear to auscultation, no wheezing, rales or rhonchi Chest Wall: no tenderness Back: No midline thoracic or lumbar vertebral tenderness. No CVA tenderness Musculoskeletal: normal ROM, no calf or popliteal tenderness, no lower extremity edema/swelling GI: Abdomen is soft, non-distended. There is tenderness upon palpation of the periumbilical area and the right lower quadrant Neurological: A&O x4. No cranial nerve dysfunction observed. No truncal ataxia. Moves all extremities. Sensation intact. Psychiatric: Cooperative and interactive. Normal mood and affect. Constitutional Vital Signs, click to edit/add: Last Vital Signs Temp 98.7 F 08/21/24 13:38 Pulse 96 H 08/21/24 14:50 Resp 16 08/21/24 14:50 BP 125/70 08/21/24 14:50 Pulse Ox 99 08/21/24 14:50 O2 Del Method Room Air 08/21/24 13:38 Course Vital Signs Vital signs: Vital Signs Temperature 98.7 F 08/21/24 13:38 Pulse Rate 110 H 08/21/24 13:38 Respiratory Rate 18 08/21/24 13:38 Blood Pressure 116/84 08/21/24 13:38 Pulse Oximetry 97 08/21/24 13:38 Oxygen Delivery Method Room Air 08/21/24 13:38 Temperature 98.7 F 08/21/24 13:38 Pulse Rate 96 H 08/21/24 14:50 Respiratory Rate 16 08/21/24 14:50 Blood Pressure 125/70 08/21/24 14:50 Pulse Oximetry 99 08/21/24 14:50 Oxygen Delivery Method Room Air 08/21/24 13:38 MDM - Nausea/Vomiting/Diarrhea MDM Narrative Medical decision making narrative: The patient CBC shows a leukocytosis and because of the patient white blood cell elevation the patient had a CAT scan that showed no acute pathology Chemistry was within normal and the patient was feeling better after IV fluid hydration and Zofran Patient discharged home with Zofran as well as Pepcid The patient is to follow up with primary care physician in next 2-3 days or to return to the emergency department should any of the signs or symptoms worsen or new symptoms develop. The patient agrees with the following Diagnosis and Treatment plan and the patient will be discharged home. Lab Data Labs: Lab Results 08/21/24 Range/Units 13:54 WBC 18.0 H (4.0-11.0) 10^3/uL RBC 5.83 (4.70-6.10) 10^6/uL Hgb 17.2 (14.0-18.0) g/dL Hct 50.9 (42.0-54.0) % MCV 87.3 (80.0-94.0) fL MCH 29.5 (25.9-34.0) pg MCHC 33.8 (29.9-35.2) g/dL RDW 13.6 (11.0-15.0) % Plt Count 304 (150-450) 10^3/uL MPV 10.4 (9.5-13.5) fL Seg Neuts % (Manual) 91.0 H (43.0-75.0) Band Neutrophils % 2.0 (0-5) % Lymphocytes % (Manual) 4.0 L (20.5-60.0) % Monocytes % (Manual) 3.0 (1.7-12.0) % Eosinophils % (Manual) 0.0 L (0.9-7.0) % Basophils % (Manual) 0.0 L (0.2-2.0) % Neutrophils # (Manual) 16.38 H (1.4-6.5) 10^3/uL Band Neutrophils # 0.4 H (0.0-0.3) 10^3/uL Lymphocytes # (Manual) 0.72 L (1.20-3.80) 10^3/uL Monocytes # (Manual) 0.54 (0.30-0.80) 10^3/uL Eosinophils # (Manual) 0.00 (0.00-0.70) 10^3/uL Basophils # (Manual) 0.00 (0.00-0.10) 10^3/uL Sodium 141 (136-145) mmol/L Potassium 4.4 (3.5-5.1) mmol/L Chloride 103 (98-107) mmol/L Carbon Dioxide 22.6 (21.0-32.0) mmol/L Anion Gap 19.8 BUN 34.0 H (7.0-18.0) mg/dL Creatinine 1.17 (0.70-1.30) mg/dL Est GFR ( Amer) >60 (>=60 mL/min/1.73m^2) Est GFR (Non-Af Amer) >60 (>=60 mL/min/1.73m^2) BUN/Creatinine Ratio 29.1 Glucose 123 H (74-106) mg/dL Calcium 9.7 (8.5-10.1) mg/dL Total Bilirubin 0.7 (0.2-1.0) mg/dL AST 19 (15-37) U/L ALT 39 (16-63) U/L Alkaline Phosphatase 106 (46-116) U/L Total Protein 8.4 H (6.4-8.2) g/dL Albumin 4.6 (3.4-5.0) g/dL Globulin 3.8 g/dL Albumin/Globulin Ratio 1.2 Discharge Plan Discharge Chief Complaint: Nausea/Vomiting/Diarrhea Clinical Impression: Gastroenteritis Patient Disposition: Home, Self-Care Time of Disposition Decision: 15:34 Condition: Good Prescriptions / Home Meds: New famotidine [Pepcid] 20 mg tablet 20 mg PO BID Qty: 14 0RF ondansetron 4 mg tablet,disintegrating 4 mg PO Q8H PRN (Reason: nausea and vomiting) 3 Days Qty: 10 0RF No Action No Known Home Medications Print Language: Montserrat[place] Instructions: Gastroenteritis (DC) Referrals: Physician,Non-Staff, MD [Primary Care Provider] - 1 week
[2024-08-21 14:50] VITALS: BP 125/70; PULSE 96; O2SAT 99
[2024-08-21 16:05] VITALS: BP 111/78; PULSE 100; O2SAT 100
== END 2024-08-21 16:06 | disposition home or self-care (01) ==
PROVIDERS: Emergency Provider Emergency Medicine
DX: K52.9 Noninfective gastroenteritis and colitis, unspecified (principal); R10.31 Right lower quadrant pain
CPT/HCPCS: 36415; 74176; 80053; 85007; 85027; 96361; 96374; 96375; 99285; J2405; J3490

== ENCOUNTER 2024-12-14 21:44 | Emergency (ER) | payer OTHER, SELFPAY ==
[2024-12-14 21:48] VITALS: BP 127/82; PULSE 99; TEMP 36.6; O2SAT 98; BMI 26.6
--- OUTSIDE RECORDS SUMMARY | 2024-12-14 21:50 | XMS_ITS | CCD ---
Author Organization [facility] Care Team Providers Care Basketball Scout Name Role Phone Leo Florez Primary Care Provider DR GUNJAN MCKENZIE Primary Care Unavailable CHRIS HUYNH Admitting Unavailable CHRIS HUYNH Attending Unavailable Nitesh Singh Consulting Unavailable CHRIS HUYNH Consulting Unavailable NICOLE MARINA Admitting Unavailable NICOLE MARINA Attending Unavailable NICOLE MARINA Primary Care Unavailable NICOLE MARINA Consulting Unavailable Nicloe Marina Unavailable Leo Florez Primary Care Provider [phone] Gaston APPRENTICE JOCKEY - TELEVISION INSPECTOR, Nicole [facility] Gaston APPRENTICE JOCKEY - ALEJANDRA, Nicole [facility] er HERMINIA MARINA Attending Unavail able HERMINIA MARINA Admitting Unavail able NICOLE MARINA Attending Unavailable NICOLE MARINA Admitting Unavailable VINAY JONES Attending Unavailable VINAY JONES Attending Unavailable Gaston Kirkland NP, Nicole [facility] er NICOLE MARINA Referring Unavailable NICOLE MARINA Primary Care Unavailable Allergies Allergy Classification Reported Allergen(s) Allergy Type Date of Onset Reaction(s) Facility (7 sources) Cefuroxime Drug Allergy 06-28-20 16 Rash [place], [place] (7 sources) Cyproheptadine Drug Allergy 06-28-20 16 Other (See Comments) [place], [place] (2 sources) Penicillins Propensity to adverse reactions to drug 06-28-20 16 [facility] [place] [place] [facility]) Cefuroxime Drug Allergy 03-02-20 20 [facility] (1 source) Penicillins Drug allergy (disorder) 11-20-19 13 [facility] (5 sources) Cefuroxime Drug Allergy rash [facility] Other (5 sources) Penicillin G Drug Allergy Unknown [facility] Other (5 sources) Penicillins Propensity to adverse reactions to drug 06-28-20 16 [facility] [employer] Work Phone: Medications Current Medications Medication Drug [...] Aug, Active ibuprofen 400 mg oral tablet (8 sources) Nonsteroidal Anti-inflammatory Drug Start: 04-05-2021 ibuprofen [...] Translations: [Generalized anxiety disorder] Onset: 1 Resolved: Chronic Developmental disorders (5 sources) Nonverbal learning disorder; 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 E Codes: Fall (1 source) Fall; Translations: [Unspecified fall, initial encounter] Episodic Fracture of lower limb (3 sources) Closed fracture of ankle; Translations: [Other fracture of right lower leg, subsequent encounter for closed fracture with delayed healing] Episodic Miscellaneous mental health disorders (5 sources) [...] left wrist] Episodic Other non-traumatic joint disorders (1 source) Pain of right shoulder joint; Translations: [Pain in right shoulder] 10-28-2024 Episodic Other non-traumatic joint disorders (1 source) Pain in right shoulder; Translations: [Pain in right shoulder] Onset: 5 Episodic Otitis media and related conditions (1 source) Otitis media, unspecified, right ear Episodic Sprains and strains (1 source) Sprain of right ankle; Translations: [Sprain of unspecified ligament of right ankle, sequela] Episodic Unclassified (1 source) Injury of left [...] exam Z02.5] Onset: 04-15-2021 Resolved: 04-15-2021 Episodic Other injuries and conditions due to external causes (2 sources) Unspecified injury of right ankle, subsequent encounter; Translations: [UNSPECIFIED INJURY RT ANKLE SUBSQT] Onset: 09-12-2021 Resolved: 09-12-2021 Episodic Other lower respiratory disease (4 sources) Hemoptysis; Translations: [HEMOPTYSIS] Onset: 03-19-2021 Episodic Other non-traumatic joint disorders (1 source) Pain in right ankle and joints of right foot Onset: 08-22-2021 Resolved: 08-22-2021 Episodic Other upper respiratory infections (1 source) Acute upper respiratory infection, unspecified; Translations: [ACUTE UP RESPIRATORY INFECTION UNS] Onset: 2021 Episodic Results Test Name Value Interpretation Reference Range Facility XR SHOULDER RIGHT (MIN 2 VIE WS)on 11-05-2024 XR SHOULDER RIGHT (MIN 2 VIEWS) EXAMINATION: TWO XRAY VIEWS OF THE RIGHT SHOULDER 10/28/2024 6:00 am COMPARISON: None. HISTORY: ORDERING SYSTEM PROVIDED HISTORY: Pain, joint, shoulder, right FINDINGS: The right shoulder joint appears intact. No fracture or dislocation. No significant degenerative change. IMPRESSION: No acute osseous findings. Interpreted by: Amol Avila MD Signed by: Amol Avila MD 11/05/[address] Albumin [Mass/Vol] 4.7 g/dL Normal 3.3-5.0 [facility] Comment on above: Performed By: #### 2 [id number] #### [facility] [address] [place] [address] Albumin/Globulin (S) [Mass conc ratio] 2.0 Normal 1.1-2.2 [facility] Comment on above: Performed By: #### 2 [id number] #### [facility] [address] [place] [address] ALP [Catalytic activity/Vol] 79 Int._Unit/L Normal 21-98 [facility] Comment on above: Performed By: #### 2 [id number] #### [facility] [address] [place] [address] ALT No additional P-5'-P [Catalytic activity/Vol] 18 Int._Unit/L Normal 6-46 [facility] Comment on above: Performed By: #### 2 [id number] #### [facility] [address] [place] [address] Anion gap [Moles/Vol] 12 mmol/L Normal 6-16 [facility] Comment on above: Performed By: #### 2 [id number] #### [facility] [address] [place] [address] AST [Catalytic activity/Vol] 16 Int._Unit/L Normal 5-43 [facility] Comment on above: Performed By: #### 2 [id number] #### [facility] [address] [place] [address] Bilirubin [Mass/Vol] 0.5 mg/dL Normal 0.0-1.1 [facility] Comment on above: Performed By: #### 2 [id number] #### [facility] [address] [place] [address] Calcium [Mass/Vol] 9.4 mg/dL Normal 8.9-11.1 [facility] Comment on above: Performed By: #### 2 [id number] #### [facility] [address] [place] [address] Chloride [Moles/Vol] 105 mmol/L Normal 101-111 [facility] Comment on above: Performed By: #### 2 [id number] #### [facility] [address] [place] [address] CO2 [Moles/Vol] 29 mmol/L Normal 21-31 [facility] Comment on above: Performed By: #### 2 [id number] #### [facility] [address] [place] [address] Creatinine [Mass/Vol] 1.0 mg/dL Normal 0.5-1.3 [facility] Comment on above: Performed By: #### 2 [id number] #### [facility] [address] [place] [address] Globulin (S) [Mass/Vol] 2.4 g/dL Normal 1.4-4.0 [facility] Comment on above: Performed By: #### 2 [id number] #### [facility] [address] [place] [address] Glucose [Mass/Vol] 83 mg/dL Normal 55-199 [facility] Comment on above: Performed By: #### 2 [id number] #### [facility] [address] [place] [address] Potassium [Moles/Vol] 4.6 mmol/L Normal 3.5-5.3 [facility] Comment on above: Performed By: #### 2 [id number] #### [facility] [address] [place] [address] Protein [Mass/Vol] 7.1 g/dL Normal 6.0-7.8 [facility] Comment on above: Performed By: #### 2 [id number] #### [facility] [address] [place] [address] Sodium [Moles/Vol] 141 mmol/L Normal 135-145 [facility] Comment on above: Performed By: #### 2 [id number] #### [facility] [address] [place] [address] Urea nitrogen [Mass/Vol] 17 mg/dL Normal 5-21 [facility] Comment on above: Performed By: #### 2 [id number] #### [facility] [address] [place] [address] Urea nitrogen/Creatinine [Mass ratio] 17 No Units Normal 10-20 [facility] Comment on above: Performed By: #### 2 [id number] #### [facility] [address] [place] [address] Lipid Panelon 12-09-2023 Cholesterol [Mass/Vol] 133 mg/dL Normal 120-200 [facility] Comment on above: Performed By: #### 2 [id number] #### [facility] [address] [place] [address] Cholesterol in HDL [Mass/Vol] 31 mg/dL Invalid Interpretation Code [facility] Comment on above: Result Comment: '>= 60 LOW RISK' '<= 40 HIGH RISK' Performed By: #### 2 [id number] #### [facility] [address] [place] [address] Cholesterol in LDL [Mass/Vol] 85 mg/dL Normal <=129 [facility] Comment on above: Performed By: #### 2 [id number] #### [facility] [address] [place] [address] Cholesterol in VLDL [Mass/Vol] 35 mg/dL Normal 7-40 [facility] Comment on above: Performed By: #### 2 [id number] #### [facility] [address] [place] [address] Triglyceride [Mass/Vol] 174 mg/dL High <=149 [facility] Comment on above: Performed By: #### 2 [id number] #### [facility] [address] [place] [address] Physician Orderon 12-09-2023 Physician Order [id number] Normal [facility] T4 & TSHon 12-09-2023 TSH Qn 1.50 m[IU]/L Normal 0.34-5.60 [facility] Comment on above: Performed By: #### 1 [id number] #### [facility] [address] [place] [address] T4 [Mass/Vol] 8.5 microgram/dL Normal 4.6-9.1 [facility] Comment on above: Performed By: #### 1 [id number] #### [facility] [address] [place] [address] eGFRon 12-09-2023 eGFR 110 mL/min/1.73 m2 Normal >=59 [facility] Comment on above: Order Comment: Order added by Discern Expert. Performed By: #### 1 [id number] #### [facility] [address] [place] [address] Basic Metabolic Panelon 08-0 Anion gap [Moles/Vol] 8 mmol/L Low 9 - 17 mmol/L [facility] Calcium [Mass/Vol] 9.0 mg/dL 8.6 - 10. 4 mg/dL [facility] Chloride [Moles/Vol] 102 mmol/L 98 - 10 7 mmol/L [address] CO2 [Moles/Vol] 28 mmol/L 20 - 31 mmol/L [address] Creatinine [Mass/Vol] 0.9 mg/dL 0.7 - 1.2 mg/dL [address] GFR/1.73 sq M.predicted MDRD (S/P/Bld) [Vol rate/Area] - PINF [employer] [facility] Comment on above: These results are not [...] [Mass/Vol] 82 mg/dL 70 - 99 mg/dL [facility] Interpretation and review of laboratory results Abnormal [facility] Potassium [Moles/Vol] 3.8 mmol/L 3.7 - 5.3 mmol/L [facility] Sodium [Moles/Vol] 138 mmol/L 135 - 144 mmol/L [facility] Urea nitrogen [Mass/Vol] 15 mg/dL 6 - 20 mg/dL [facility] Urea nitrogen/Creatinine [Mass ratio] 17 mg/mg 9 - 20 [facility] CBC with Auto Differentialon 02-10-2023 Basophils (Bld) [#/Vol] 0.08 10*3/uL [facility] Basophils/100 WBC (Bld) 1 % 0 - 2 % [facility] Eosinophils (Bld) [#/Vol] 0.33 10*3/uL [facility] Eosinophils/100 WBC (Bld) 4 % 1 - 4 % [facility] Erythrocyte distribution width (RBC) [Ratio] 13.2 % 11.8 - 14.4 % [facility] Hematocrit (Bld) [Volume fraction] 46.1 % 40.7 - 50.3 % [facility] Hemoglobin (Bld) [Mass/Vol] 15.8 g/dL 13.0 - 17.0 g/dL [facility] Immature granulocytes (Bld) [#/Vol] [facility] Immature granulocytes/100 WBC (Bld) 0 % 0 [facility] Lymphocytes/100 WBC (Bld) 34 % 25 - 45 % [facility] Lymphocytes/100 WBC (Bld) 2.56 % [facility] MCH (RBC) [Entitic mass] 30.2 pg 25.2 - 33.5 pg [facility] MCHC (RBC) [Mass/Vol] 34.3 g/dL 28.4 - 34.8 g/dL [facility] MCV (RBC) [Entitic vol] 88.1 fL 82.6 - 102.9 fL [facility] Monocytes/100 WBC (Bld) 7 % 2 - 8 % [facility] Monocytes/100 WBC (Bld) 0.56 % [facility] Neutrophils/100 WBC (Bld) 54 % 34 - 64 % [facility] Nucleated RBC/100 WBC (Bld) [Ratio] 0.0 % 0.0 per 100 WBC [facility] Platelet mean volume (Bld) [Entitic vol] 10.3 fL 8.1 - 13.5 fL [facility] Platelets (Bld) [#/Vol] 229 10*3/uL [facility] RBC (Bld) [#/Vol] 5.23 10*6/uL 4.21 - 5.7 7 m/uL [facility] Segmented neutrophils/100 WBC (Bld) 4.06 % [facility] WBC other (Bld) [#/Vol] 7.6 [facility] No Panel Informationon 10-05 No acute osseous abnormality. [facility] EXAMINATION: THREE XRAY VIEWS OF THE LEFT HAND; 3 XRAY VIEWS OF THE LEFT WRIST 10/05/2022 10:10 pm COMPARISON: 07/11/2008. HISTORY: ORDERING SYSTEM PROVIDED HISTORY: pain TECHNOLOGIST PROVIDED HISTORY: pain FINDINGS: There is no evidence of acute fracture. There is normal alignment. No acute joint abnormality. No focal osseous lesion. No focal soft tissue abnormality. [facility] Glen Haynse MD - 10/05/2022 EXAMINATION: THREE XRAY VIEWS OF THE LEFT HAND; 3 XRAY VIEWS OF THE LEFT WRIST 10/05/2022 10:10 pm COMPARISON: 07/11/2008. HISTORY: ORDERING SYSTEM PROVIDED HISTORY: pain TECHNOLOGIST PROVIDED HISTORY: pain FINDINGS: There is no evidence of acute fracture. There is normal alignment. No acute joint abnormality. No focal osseous lesion. No focal soft tissue abnormality. IMPRESSION: No acute osseous abnormality. [facility] Work Phone: No Panel InformationOrdered By: Glen Haynes on 10-05-2022 [email or web address] Phone: XR HAND LEFT (MIN 3 VIEWS)on 10-05-2022 Radiology Study observation (narrative) [email or web address] Phone: XR WRIST LEFT (MIN 3 VIEWS)o n 10-05-2022 Radiology Study observation (narrative) [email or web address] Phone: KIKO EIA W/REFLEX 5 BIOMARKER Son 09-16-2021 KIKO Direct Negative Normal Negative [facility] Comment on above: Performed By: #### A NARF #### [facility] [address] [place] [address] Dr. Didi Del Rosario ANKLE LEFT 3 VWSon 2 ANKLE LEFT 3 VWS [facility] Department of Radiology [address] [place] [id number] Patient Name: KIMBERLY CLEANING : 2005 Sex: M Age: Race: White Pt. Location: Patient Status: Ordered Date: 09/16/2021 12:05:00 PM Completed Date: 09/16/2021 12:06 PM Requesting Provider: CLEO CURRIE Attending Provider: Report Copy To: Signs & Symptoms: M25.371 Other instability, right ankle I10 History: Comments: For comparisson to R ankle xrays Exam: ANKLE LEFT 3 VWS ANKLE LEFT 3 VWS 09/16/2021 12:06 PM CLINICAL INDICATIONS: M25.371 Other [...] radiographically. Electronically signed: Tate Ochoa. Transcribed by: [email or web address], User Resident: Electronically Signed by: TATE OCHOA @ 09/16/2021 08:52 PM Normal [facility] Comment on above: Order Comment: For c omparisson to R ankle xrays ANKLE RIGHT 3 VWSon 09-17-19 22 ANKLE RIGHT 3 S [facility] Department of Radiology [address] [place] [id number] Patient Name: KIMBERLY CLEANING : 2005 Sex: M Age: Race: White Pt. Location: Patient Status: O Ordered Date: 09/16/2021 11:05:00 AM Completed Date: 09/16/2021 12:05 PM Requesting Provider: CLEO CURRIE Attending Provider: CLEO CURRIE Report Copy To: Signs & Symptoms: M25.571 Pain in right ankle and joints of right foot I10 History: [place] Comments: Weight Bearing?: Y Exam: ANKLE RIGHT 3 [facility] ANKLE RIGHT 3 VWS 09/16/2021 12:05 PM CLINICAL INDICATIONS: M25.571 Pain [...] report. Electronically signed: Trevor Monson. Transcribed by: [email or web address], User Resident: JASON DUDLEY Electronically Signed by: TREVOR MONSON @ 09/16/2021 04:47 PM I personally read this/these film(s) with this resident Normal [facility] Comment on above: Order Comment: Weigh t Bearing?: Y RHEUMATOID FACTORon 09-15-19 22 RA Latex Turbid. <10.0 Normal <14.0 [facility] Comment on above: Performed By: #### R F #### [facility] [address] [place] [address] Dr. Didi Del Rosario CBC AUTO DIFFon 09-12-2021 BASO # 0.1 103/ul Normal 0.0-0.1 [facility] Comment on above: Performed By: #### C BC #### [facility] [address] [place] [address] Dr. Didi Del Rosario Basophils/100 WBC (Bld) 1.1 % Normal 0.2-2.0 [facility] Comment on above: Performed By: #### C BC #### [facility] [address] [place] [address] Dr. Didi Del Rosario EO # 0.2 103/ul Normal 0.0-0.7 [facility] Comment on above: Performed By: #### C BC #### [facility] [address] [place] [address] Dr. Didi Del Rosario Eosinophils/100 WBC (Bld) 2.6 % Normal 0.9-7.0 [facility] Comment on above: Performed By: #### C BC #### [facility] [address] [place] [address] Dr. Didi Del Rosario Erythrocyte distribution width (RBC) [Ratio] 13.4 % Normal 11.0-15.0 [facility] Comment on above: Performed By: #### C BC #### [facility] [address] [place] [address] Dr. Didi Del Rosario Hematocrit (Bld) [Volume fraction] 48.8 % Normal 42.0-54.0 [facility] Comment on above: Performed By: #### C BC #### [facility] [address] [place] [address] Dr. Didi Del Rosario Hemoglobin (Bld) [Mass/Vol] 16.2 g/dL Normal 14.0-18.0 [facility] Comment on above: Performed By: #### C BC #### [facility] [address] [place] [address] Dr. Didi Del Rosario IG # 0.01 10e3/ul Normal 0.00-0.03 [facility] Comment on above: Performed By: #### C BC #### [facility] [address] [place] [address] Dr. Didi Del Rosario IG % 0.1 % Normal 0.0-0.5 [facility] Comment on above: Performed By: #### C BC #### [facility] [address] [place] [address] Dr. Didi Del Rosario LYMPH # 2.6 103/ul Normal 1.2-3.8 [facility] Comment on above: Performed By: #### C BC #### [facility] [address] [place] [address] Dr. Didi Del Rosario Lymphocytes/100 WBC (Bld) 31.6 % Normal 20.5-60.0 [facility] Comment on above: Performed By: #### C BC #### [facility] [address] [place] [address] Dr. Didi Del Rosario MANUAL DIFF REQ NO Normal [facility] Comment on above: Performed By: #### C BC #### [facility] [address] [place] [address] Dr. Didi Del Rosario MCH (RBC) [Entitic mass] 29.9 pg Normal 25.9-34.0 [facility] Comment on above: Performed By: #### C BC #### [facility] [address] [place] [address] Dr. Didi Del Rosario MCHC (RBC) [Mass/Vol] 33.2 g/dL Normal 29.9-35.2 [facility] Comment on above: Performed By: #### C BC #### [facility] [address] [place] [address] Dr. Didi Del Rosario MCV (RBC) [Entitic vol] 90.2 fL Normal 80.0-94.0 [facility] Comment on above: Performed By: #### C BC #### [facility] [address] [place] [address] Dr. Didi Del Rosario MONO # 0.7 103/ul Normal 0.3-0.8 [facility] Comment on above: Performed By: #### C BC #### [facility] [address] [place] [address] Dr. Didi Del Rosario Monocytes/100 WBC (Bld) 7.8 % Normal 1.7-12.0 [facility] Comment on above: Performed By: #### C BC #### [facility] [address] [place] [address] Dr. Didi Del Rosario NEUT # 4.7 103/ul Normal 1.4-6.5 [facility] Comment on above: Performed By: #### C BC #### [facility] [address] [place] [address] Dr. Didi Del Rosario Neutrophils/100 WBC (Bld) 56.8 % Normal 43.0-75.0 [facility] Comment on above: Performed By: #### C BC #### [facility] [address] [place] [address] Dr. Didi Del Rosario Platelet mean volume (Bld) [Entitic vol] 10.6 fL Normal 9.5-13.5 [facility] Comment on above: Performed By: #### C BC #### [facility] [address] [place] [address] Dr. Didi Del Rosario PLT 273 103/ul Normal 150-450 [facility] Comment on above: Performed By: #### C BC #### [facility] [address] [place] [address] Dr. Didi Del Rosario RBC 5.41 106/ul Normal 4.70-6.10 [facility] Comment on above: Performed By: #### C BC #### [facility] [address] [place] [address] Dr. Didi Del Rosario WBC 8.3 103/ul Normal 4.0-11.0 [facility] Comment on above: Performed By: #### C BC #### [facility] [address] [place] [address] Dr. Didi Del Rosario CRPon 09-12-2021 CRP [Mass/Vol] mg/L Normal <=1.0 [facility] Comment on above: Performed By: #### C MP, URIC, CRP #### [facility] [address] [place] [address] Dr. Didi Del Rosario PROF 14(COMP METB)on 022 Albumin [Mass/Vol] 4.6 g/dL Normal 3.5-5.0 [facility] Comment on above: Performed By: #### C MP, URIC, CRP #### [facility] [address] [place] [address] Dr. Didi Del Rosario Albumin/Globulin [Mass ratio] 1.4 {ratio} Normal [facility] Comment on above: Performed By: #### C MP, URIC, CRP #### [facility] [address] [place] [address] Dr. Didi Del Rosario ALP [Catalytic activity/Vol] 87 U/L Normal 38-126 [facility] Comment on above: Performed By: #### C MP, URIC, CRP #### [facility] [address] [place] [address] Dr. Didi Del Rosario ALT [Catalytic activity/Vol] 19 U/L Critically low 21-72 [facility] Comment on above: Performed By: #### C MP, URIC, CRP #### [facility] [address] [place] [address] Dr. Didi Del Rosario Anion gap [Moles/Vol] 10.6 mmol/L Normal [facility] Comment on above: Performed By: #### C MP, URIC, CRP #### [facility] [address] [place] [address] Dr. Didi Del Rosario AST [Catalytic activity/Vol] 16 U/L Critically low 17-59 [facility] Comment on above: Performed By: #### C MP, URIC, CRP #### [facility] [address] [place] [address] Dr. Didi Del Rosario Bilirubin [Mass/Vol] 0.6 mg/dL Normal 0.2-1.3 [facility] Comment on above: Performed By: #### C MP, URIC, CRP #### [facility] [address] [place] [address] Dr. Didi Del Rosario Calcium [Mass/Vol] 8.6 mg/dL Normal 8.4-10.2 [facility] Comment on above: Performed By: #### C MP, URIC, CRP #### [facility] [address] [place] [address] Dr. Didi Del Rosario Chloride [Moles/Vol] 104 mmol/L Normal 98-107 [facility] Comment on above: Performed By: #### C MP, URIC, CRP #### [facility] [address] [place] [address] Dr. Ddii Del Rosario CO2 [Moles/Vol] 29.1 mmol/L Normal 22.0-30.0 [facility] Comment on above: Performed By: #### C MP, URIC, CRP #### [facility] [address] [place] [address] Dr. Didi Del Rosario Creatinine [Mass/Vol] 1.02 mg/dL Normal 0.66-1.25 [facility] Comment on above: Performed By: #### C MP, URIC, CRP #### [facility] [address] [address] [address] Didi Del Rosario EGFR-AF NORTH [place]OREAN >60 Normal >=60 [facility] Comment on above: Performed By: #### C MP, URIC, CRP #### [facility] [address] [address] [address] Didi Del Rosario EGFR-NON AF [place]TH [place]OREAN >60 Normal >=60 [facility] Comment on above: Performed By: #### C MP, URIC, CRP #### [facility] [address] [address] [address] Didi Del Rosario Globulin (S) [Mass/Vol] 3.4 g/dL Normal [facility] Comment on above: Performed By: #### C MP, URIC, CRP #### [facility] [address] [address] [address] Didi Del Rosario Glucose [Mass/Vol] 92 mg/dL Normal 74-106 [facility] Comment on above: Performed By: #### C MP, URIC, CRP #### [facility] [address] [address] [address] Didi Del Rosario Potassium [Moles/Vol] 3.7 mmol/L Normal 3.4-5.0 [facility] Comment on above: Performed By: #### C MP, URIC, CRP #### [facility] [address] [address] [address] Didi Del Rosario Protein [Mass/Vol] 8.0 g/dL Normal 6.1-8.2 [facility] Comment on above: Performed By: #### C MP, URIC, CRP #### [facility] [address] [address] [address] Didi Del Rosario Sodium [Moles/Vol] 140 mmol/L Normal 137-145 [facility] Comment on above: Performed By: #### C MP, URIC, CRP #### [facility] [address] [address] [address] Didi Del Rosario Urea nitrogen [Mass/Vol] 17.0 mg/dL Normal 6.4-19.3 [facility] Comment on above: Performed By: #### C MP, URIC, CRP #### [facility] [address] [address] [address] Didi Del Rosario Urea nitrogen/Creatinine [Mass ratio] 16.7 mg/mg Normal [facility] Comment on above: Performed By: #### C MP, URIC, CRP #### [facility] [address] [address] [address] Didi Del Rosario URIC ACID SERUMon 09-12-2021 Urate [Mass/Vol] 7.0 mg/dL Normal 3.5-8.5 [facility] Comment on above: Performed By: #### C MP, URIC, CRP #### [facility] [address] [address] [address] Didi Del Rosario VITAMIN D 25 OHon 09-12-2021 VIT D 25-OH 32.6 ng/mL Normal [facility] Comment on above: Performed By: #### V ITAD #### [facility] [address] [address] [address] Didi Del Rosario VIT D RANGES SEE BELOW Normal [facility] Comment on above: Result Comment: <20 ng/mL Vit D deficient 20 - <30 ng/mL Vit D insufficient 30 - 100 ng/mL Vit D sufficient >100 ng/mL Potential Toxicity Performed By: #### V ITAD #### [facility] [address] [address] [address] Didi Del Rosario XR ankle RT min 3V*on 2021 XR ankle RT min 3V* [facility] [place] [address] XRay Report Signed Patient: Kimberly Cleaning MR#: [id number] : 2005 Acct:[id number] Age/Sex: 16 / M ADM Date: 08/22/21 Loc: XDCLY Room: Type: [facility] Attending Dr: Nicole SULLIVAN-May Ordering Provider: NICOLE MARINA Date of Service: [...] Jack Concepcion M.D.08/22/2021 2:48 PM Dictation Location: [place] [address] Transcribed By: KRIS 08/22/21 1448 Dictated By: Jack Concepcion II, MD 08/22/21 1446 Signed By: 08/22/21 1448 Normal [facility] XR ankle RT min 3V* [facility] [employer] Other XR ankle RT min 3V* [facility] [employer] Other XR ankle RT min 3V* [address] [place] [address] [employer] Other XR ankle RT min 3V* [place] [address] [employer] Other XR ankle RT min 3V* [facility]Ray [facility] [employer] Other XR ankle RT min 3V* Signed [employer] Other XR ankle RT min 3V* Patient: Kimberly Cleaning MR#: [id number] [employer] Other XR ankle RT min 3V* 2840 [employer] Other XR ankle RT min 3V* : 2005 Acct:[id number] [employer] Other XR ankle RT min 3V* Age/Sex: 16 / M ADM Date: 08/22/21 [employer] Other XR ankle RT min 3V* Loc: XDCLY [facility] [employer] Other XR ankle RT min 3V* Attending Dr: Nicole Marina [facility] [employer] Other XR ankle RT min 3V* Ordering Provider: NICOLE MARINA [facility] [employer] Other XR ankle RT min 3V* Date of Service: 08/22/21 [employer] Other XR ankle RT min 3V* XR/XR ankle RT min 3V*: Pain in right ankle and joints of right foot [employer] Other XR ankle RT min 3V* Copies to: NICOLE MARINA [facility] [employer] Other XR ankle RT min 3V* XR ankle RT min 3V* 08/22/2021 1:17 PM [employer] Other XR ankle RT min 3V* SIGNS AND SYMPTOMS: Right ankle pain laterally [employer] Other XR ankle RT min 3V* PROTOCOL: Frontal, lateral, and oblique radiographs of the right ankle. [employer] Other XR ankle RT min 3V* COMPARISON: None [employer] Other XR ankle RT min 3V* FINDINGS: [employer] Other XR ankle RT min 3V* The ankle mortise is preserved. There is a tiny well-corticated fragment separate from the lateral [employer] Other XR ankle RT min 3V* malleolus suggestive of a remote avulsive injury. There is minimal soft tissue swelling over the [employer] Other XR ankle RT min 3V* lateral malleolus. There is no joint effusion. No acute displaced fracture. [employer] Other XR ankle RT min 3V* XR/XR ankle RT min 3V* [employer] Other XR ankle RT min 3V* IMPRESSION: [employer] Other XR ankle RT min 3V* No acute displaced fracture. [employer] Other XR ankle RT min 3V* There is a tiny well-corticated fragment separate from the lateral malleolus suggestive of a remote [employer] Other XR ankle RT min 3V* avulsive injury. [employer] Other XR ankle RT min 3V* Minimal soft tissue swelling is noted laterally. [employer] Other XR ankle RT min 3V* Impression dictated by: Jack Concepcion M.D.08/22/2021 2:48 PM [employer] Other XR ankle RT min 3V* Dictation Location: [place] [address] [employer] Other XR ankle RT min 3V* Transcribed By: KRIS 08/22/21 [facility]8 [employer] Other XR ankle RT min 3V* Dictated By: Jack Concepcion II, MD 08/22/21 144 [employer] Other XR ankle RT min 3V* Signed By: [employer] Other XR ankle RT min 3V* 08/22/21 1448 No rt [employer] Other XR ANKLE RIGHT (MIN 3 VIEWS) Ordered By: Jay Rios on 04-05-2021 Soft tissue swelling with no evidence of an acute fracture or dislocation. 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 [employer] Phone: EXAMINATION: THREE XRAY VIEWS OF THE [...] fracture or dislocation. Ankle mortise is symmetric. 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 [employer] Phone: [employer] Phone: XR TIBIA FIBULA RIGHT (2 VIE WS)Ordered By: Ash Cespedes on 04-05-2021 No acute bony abnormalities are noted [employer] Phone: EXAMINATION: XRAY VIEWS OF THE RIGHT [...] fracture or dislocation. Ankle mortise is symmetric. [employer] Phone: Doug, [facility] Incoming Radiant Results From [employer] - 04/05/2021 9:03 PM EDT EXAMINATION: XRAY [...] IMPRESSION: No acute bony abnormalities are noted [employer] Phone: [employer] Phone: [facility]on SARS-CoV-2 (COVID-19) RNA JOSE G+probe Ql (Unsp spec) Not detected Normal NOT DETECTED [facility] Comment on above: Result Comment: This test is not yet approved or cleared by the [place] FDA. When there are no FDA-approved or cleared tests available, and other criteria are met, FDA can make tests available under an emergency access mechanism called an Emergency Use Authorization (EUA). The EUA for this test is supported by the Rn Clinician of Health and Human Service's (HHS's) declaration [...] consistent with SARS-CoV-2. Performed By: #### C VIOLET, CVDAGS #### [facility] [address] [place] [id number] Billy Murrieta SYMPTOMATIC COVID-19 ANTIGEN on 03-19-2021 EUA Statement SEE BELOW Normal [facility] Comment on above: Result Comment: This test [...] is revoked sooner. Performed By: #### C VIOLET, JULIOS #### [facility] [address] [place], [place] [id number] Billy Murrieta SARS-CoV-2 (COVID-19) RNA JOSE G+probe Ql (Unsp spec) Negative Normal NEGATIVE [facility] Comment on above: Result Comment: CONF IRMATION BY PCR PENDING PER CDC GUIDELINES/ SYMPTOMATIC PATIENT. Performed By: #### C VIOLET, CVDAGS #### [facility] [address] [place], [place] [id number] Billy Murrieta XR CHEST 1 Von 03-19-2021 XR CHEST 1 V Single view of the chest. HISTORY: Cough. COMPARISON: None. TECHNIQUE: AP portable upright view of the chest FINDINGS: Heart and vascularity are unremarkable. Lungs are expanded and free of focal infiltrates. No effusions are noted. IMPRESSION: No acute heart or lung disease identified. Electronically authenticated by: NITESH SINGH Date: 2021-03-19 11:22 Normal [facility] Celiacon 02-13-2021 Deamidated Gliadin Abs, IgA 3 Normal 0-19 [facility] Comment on above: Order Comment: Reaso n for Exam RUQ abdominal pain;Nausea Result Comment: Nega tive 0 - 19 Weak Positive 20 - 30 Moderate to Strong Positive >30 Performed By: #### C ELIAC #### [facility] , #### CMP, CBC #### [facility] [address] [place] [address] [place] Deamidated Gliadin Abs, IgG 2 Normal 0-19 [facility] Comment on above: Order Comment: Reaso n for Exam RUQ abdominal pain;Nausea Result Comment: Nega tive 0 - 19 Weak Positive 20 - 30 Moderate to Strong Positive >30 Performed By: #### C ELIAC #### [facility] , #### CMP, CBC #### [place] [address] [place] Endomysial Antibody IgA Negative Normal Negative [facility] Comment on above: Order Comment: Reaso n for Exam RUQ abdominal pain;Nausea Performed By: #### C ELIAC #### [facility] , #### CMP, CBC #### [facility] [address] [place] [address] [place] Immunoglobulin A, Qn, Serum 158 mg/dL Normal 90-386 [facility] Comment on above: Order Comment: Reaso n for Exam RUQ abdominal pain;Nausea Result Comment: Perf ormed at: - [facility] [address] [id number] Regular Senior Care Provider: Kip Minor PhD, Phone: [phone] PERFORMED BY: [place] [address] PATHOLOGIST TRANSFER AND PUMPHOUSE OPERATOR CHIEF LISA KEENAN M.D. Performed By: #### C ELIAC #### [facility] , #### CMP, CBC #### [facility] [address] [place] [address] [place] T-Transglutaminase (tTG) IgA <2 Normal 0-3 [facility] Comment on above: Order Comment: Reaso [...] #### [facility] , #### CMP, CBC #### [address] T-Transglutaminase (tTG) IgG <2 Normal 0-5 [facility] Comment on above: Order Comment: Reaso n for Exam RUQ abdominal pain;Nausea Result Comment: Nega tive 0 - 5 Weak Positive 6 - 9 Positive >9 Performed By: #### C ELIAC #### [facility] , #### CMP, CBC #### [address] Complete Blood Count Auto Di ffon 02-13-2021 Basophils (Bld) [#/Vol] 0.1 10*3/uL Normal 0.0-0.1 [facility] Comment on above: Order Comment: Reaso n for Exam RUQ abdominal pain;Nausea Result Comment: PERF ORMED BY: [place] [address] PATHOLOGIST TRANSFER AND PUMPHOUSE OPERATOR CHIEF LISA KEENAN M.D. Performed By: #### C ELIAC #### [facility] , #### CMP, CBC #### [address] Basophils/100 WBC (Bld) 0.9 % Normal . [facility] Comment on above: Order Comment: Reaso n for Exam RUQ abdominal pain;Nausea Performed By: #### C ELIAC #### [facility] , #### CMP, CBC #### [place] [address] [place] Eosinophils (Bld) [#/Vol] 0.3 10*3/uL Normal 0.0-0.7 [facility] Comment on above: Order Comment: Reaso n for Exam RUQ abdominal pain;Nausea Performed By: #### C ELIAC #### [facility] , #### CMP, CBC #### [address] Eosinophils/100 WBC (Bld) 3.7 % Normal . [facility] Comment on above: Order Comment: Reaso n for Exam RUQ abdominal pain;Nausea Performed By: #### C ELIAC #### [facility] , #### CMP, CBC #### [address] Erythrocyte distribution width (RBC) [Ratio] 13.6 % Normal 12.0-14.8 [facility] Comment on above: Order Comment: Reaso n for Exam RUQ abdominal pain;Nausea Performed By: #### C ELIAC #### [facility] , #### CMP, CBC #### [address] Hematocrit (Bld) [Volume fraction] 45.5 % Normal 37.0-49.0 [facility] Comment on above: Order Comment: Reaso n for Exam RUQ abdominal pain;Nausea Performed By: #### C ELIAC #### [facility] , #### CMP, CBC #### [address] Hemoglobin (Bld) [Mass/Vol] 15.9 g/dL Normal 13.0-16.0 [facility] Comment on above: Order Comment: Reaso n for Exam RUQ abdominal pain;Nausea Performed By: #### C ELIAC #### [facility] , #### CMP, CBC #### [address] Lymphocytes (Bld) [#/Vol] 2.6 10*3/uL Normal 1.20-4.8 [facility] Comment on above: Order Comment: Reaso n for Exam RUQ abdominal pain;Nausea Performed By: #### C ELIAC #### [facility] , #### CMP, CBC #### [address] Lymphocytes/100 WBC (Bld) 34.0 % Normal . [facility] Comment on above: Order Comment: Reaso n for Exam RUQ abdominal pain;Nausea Performed By: #### C ELIAC #### [facility] , #### CMP, CBC #### [address] MCH (RBC) [Entitic mass] 31.3 pg Normal 25.0-35.0 [facility] Comment on above: Order Comment: Reaso n for Exam RUQ abdominal pain;Nausea Performed By: #### C ELIAC #### [facility] , #### CMP, CBC #### [address] MCV (RBC) [Entitic vol] 89.7 fL Normal 78-98 [facility] Comment on above: Order Comment: Reaso n for Exam RUQ abdominal pain;Nausea Performed By: #### C ELIAC #### [facility] , #### CMP, CBC #### [address] Mean Corpuscular HGB Conc 34.9 g/dL Normal 31.0-37.0 [facility] Comment on above: Order Comment: Reaso n for Exam RUQ abdominal pain;Nausea Performed By: #### C ELIAC #### [facility] , #### CMP, CBC #### [address] Monocytes (Bld) [#/Vol] 0.6 10*3/uL Normal 0.1-1.00 [facility] Comment on above: Order Comment: Reaso n for Exam RUQ abdominal pain;Nausea Performed By: #### C ELIAC #### [facility] , #### CMP, CBC #### [facility] [address] [place] [address] [place] Monocytes/100 WBC (Bld) 7.8 % Normal . [facility] Comment on above: Order Comment: Reaso n for Exam RUQ abdominal pain;Nausea Performed By: #### C ELIAC #### [facility] , #### CMP, CBC #### [place] [address] [place] Neutrophils (Bld) [#/Vol] 4.0 10*3/uL Normal 1.2-7.7 [facility] Comment on above: Order Comment: Reaso n for Exam RUQ abdominal pain;Nausea Performed By: #### C ELIAC #### [facility] , #### CMP, CBC #### [place] [address] [place] Neutrophils/100 WBC (Bld) 53.6 % Normal . [facility] Comment on above: Order Comment: Reaso n for Exam RUQ abdominal pain;Nausea Performed By: #### C ELIAC #### [facility] , #### CMP, CBC #### [place] [address] [place] Nucleated RBC/100 WBC (Bld) [Ratio] 0.1 % Normal 0-0.5 [facility] Comment on above: Order Comment: Reaso n for Exam RUQ abdominal pain;Nausea Performed By: #### C ELIAC #### [facility] , #### CMP, CBC #### [place] [address] [place] Platelet mean volume (Bld) [Entitic vol] 8.6 fL Normal 6.6-10.1 [facility] Comment on above: Order Comment: Reaso n for Exam RUQ abdominal pain;Nausea Performed By: #### C ELIAC #### [facility] , #### CMP, CBC #### [place] [address] [place] Platelets (Bld) [#/Vol] 200 10*3/uL Normal 150-450 [facility] Comment on above: Order Comment: Reaso n for Exam RUQ abdominal pain;Nausea Performed By: #### C ELIAC #### [facility] , #### CMP, CBC #### [facility] [address] RBC (Bld) [#/Vol] 5.08 10*6/uL Normal 4.50-5.30 [facility] Comment on above: Order Comment: Reaso n for Exam RUQ abdominal pain;Nausea Performed By: #### C ELIAC #### [facility] , #### CMP, CBC #### [facility] [address] [place] [address] WBC (Bld) [#/Vol] 7.6 10*3/uL Normal 4.5-13.5 [facility] Comment on above: Order Comment: Reaso n for Exam RUQ abdominal pain;Nausea Performed By: #### C ELIAC #### [facility] , #### CMP, CBC #### [facility] [address] [place] [address] Comprehensive Metabolic Pane jackelyn 02-13-2021 Albumin [Mass/Vol] 4.5 g/dL Normal 3.2-5.5 [facility] Comment on above: Order Comment: PT FA STED 10 1/2 HRS Reason for Exam RUQ abdominal pain;Nausea Performed By: #### C ELIAC #### [facility] , #### CMP, CBC #### [facility] [address] Albumin/Globulin [Mass ratio] 1.9 {ratio} Normal [facility] Comment on above: Order Comment: PT FA STED 10 1/2 HRS Reason for Exam RUQ abdominal pain;Nausea Performed By: #### C ELIAC #### [facility] , #### CMP, CBC #### [facility] [address] ALP [Catalytic activity/Vol] 68 U/L Normal 32-92 [facility] Comment on above: Order Comment: PT FA STED 10 1/2 HRS Reason for Exam RUQ abdominal pain;Nausea Result Comment: PERF ORMED BY: [place] [address] PATHOLOGIST TRANSFER AND PUMPHOUSE OPERATOR CHIEF LISA KEENAN M.D. Performed By: #### C ELIAC #### [facility] , #### CMP, CBC #### [facility] [address] [place] [address] ALT [Catalytic activity/Vol] 18 U/L Normal 10-60 [facility] Comment on above: Order Comment: PT FA STED 10 1/2 HRS Reason for Exam RUQ abdominal pain;Nausea Performed By: #### C ELIAC #### [facility] , #### CMP, CBC #### [facility] [address] [place] [address] AST [Catalytic activity/Vol] 20 U/L Normal 10-42 [facility] Comment on above: Order Comment: PT FA STED 10 1/2 HRS Reason for Exam RUQ abdominal pain;Nausea Performed By: #### C ELIAC #### [facility] , #### CMP, CBC #### [facility] [address] [place] [address] Bilirubin [Mass/Vol] 1.4 mg/dL High 0.3-1.2 [facility] Comment on above: Order Comment: PT FA STED 10 1/2 HRS Reason for Exam RUQ abdominal pain;Nausea Result Comment: Samp les from patients who have taken Naproxen have shown spurious elevation in Total Bilirubin levels. A metabolite of Naproxen, O-desmethylnaproxen, has been shown to interfere with the Jendrromelik-Grof method for measuring Total Bilirubin. Performed By: #### C ELIAC #### [facility] , #### CMP, CBC #### [facility] [address] [place] [address] [place] Calcium [Mass/Vol] 9.2 mg/dL Normal 8.2-10.2 [facility] Comment on above: Order Comment: PT FA STED 10 1/2 HRS Reason for Exam RUQ abdominal pain;Nausea Performed By: #### C ELIAC #### [facility] , #### CMP, CBC #### [facility] [address] Chloride [Moles/Vol] 105 mmol/L Normal 95-114 [facility] Comment on above: Order Comment: PT FA STED 10 1/2 HRS Reason for Exam RUQ abdominal pain;Nausea Performed By: #### C ELIAC #### [facility] , #### CMP, CBC #### [facility] [address] CO2 [Moles/Vol] 27.5 mmol/L Normal 22.0-30.0 [facility] Comment on above: Order Comment: PT FA STED 10 1/2 HRS Reason for Exam RUQ abdominal pain;Nausea Performed By: #### C ELIAC #### [facility] , #### CMP, CBC #### [facility] [address] Creatinine [Mass/Vol] 1.04 mg/dL Normal 0.64-1.27 [facility] Comment on above: Order Comment: PT FA STED 10 1/2 HRS Reason for Exam RUQ abdominal pain;Nausea Performed By: #### C ELIAC #### [facility] , #### CMP, CBC #### [facility] [address] [place] [address] [place] Globulin (S) [Mass/Vol] 2.4 g/dL Normal [facility] Comment on above: Order Comment: PT FA STED 10 1/2 HRS Reason for Exam RUQ abdominal pain;Nausea Performed By: #### C ELIAC #### [facility] , #### CMP, CBC #### [facility] [address] [place] [address] [facility] Glucose [Mass/Vol] 92 mg/dL Normal 70-100 [facility] Comment on above: Order Comment: PT FA STED 10 1/2 HRS Reason for Exam RUQ abdominal pain;Nausea Result Comment: [facility] Glucose Reference Range is dependent on time and content of last meal. Glucose of more than 200 mg/dL in a nonstressed, ambulatory subject supports the diagnosis of Diabetes Mellitus. ADA recommended reference range Performed By: #### C ELIAC #### [facility] , #### CMP, CBC #### [facility] [address] Potassium [Moles/Vol] 4.2 mmol/L Normal 3.5-5.1 [facility] Comment on above: Order Comment: PT FA STED 10 1/2 HRS Reason for Exam RUQ abdominal pain;Nausea Performed By: #### C ELIAC #### [facility] , #### CMP, CBC #### [facility] [address] Protein [Mass/Vol] 6.9 g/dL Normal 6.1-7.9 [facility] Comment on above: Order Comment: PT FA STED 10 1/2 HRS Reason for Exam RUQ abdominal pain;Nausea Performed By: #### C ELIAC #### [facility] , #### CMP, CBC #### [facility] [address] [place] [id number] [place] Sodium [Moles/Vol] 139 mmol/L Normal 138-145 [facility] Comment on above: Order Comment: PT FA STED 10 1/2 HRS Reason for Exam RUQ abdominal pain;Nausea Performed By: #### C ELIAC #### [facility] , #### CMP, CBC #### [facility] [address] [place] [id number] [place] Urea nitrogen [Mass/Vol] 19 mg/dL Normal 9-23 [facility] Comment on above: Order Comment: PT FA STED 10 1/2 HRS Reason for Exam RUQ abdominal pain;Nausea Performed By: #### C ELIAC #### [facility] , #### CMP, CBC #### [facility] [address] gastric emptying studyon 02-13-2021 NM gastric emptying study [facility] [address] [place] [address] [place] [address] Nuclear Medicine Report Signed Patient: Kimberly Cleaning MR#: [id number] : 2005 Acct:[id number] Age/Sex: 15 / M ADM Date: 02/13/21 Loc: [place] Room: Type: [facility] Attending Dr: Nitesh Benítez DO Ordering Provider: Nitesh Benítez Jr, DO Date of Service: 02/13/21 NM/NM gastric emptying study: RUQ abdominal pain;Nausea Copies to: NICOLE MARINA Jr, DO Young Kyu Hong, MD [...] [place] Pires M.D.02/13/2021 1:55 PM Dictation Location: [place] [address] Transcribed By: [facility] 02/13/21 1355 Dictated By: [place] Pires MD 02/13/21 1355 Signed By: 02/13/21 1355 Normal [facility] Otheron 05-13-2019 No acute osseous abnormality of the left ankle. No acute osseous abnormality of the left foot. [facility], [place] EXAMINATION: THREE XRAY VIEWS OF THE LEFT [...] There is no focal soft tissue findings. [place], [place] Doug, [facility] Incoming Radiant Results From [employer] - 05/13/2019 8:52 PM EDT EXAMINATION: THREE [...] acute osseous abnormality of the left foot. [place], [place] Vital Signs Date Time Vital Sign Value Performing Clinician Facility 12-11-2022 20:30-0400 Diastolic blood pressure 85 mm[Hg] Lee Goldberg MD Work Phone: [address] 12-11-2022 20:30-0400 Heart rate 82 /min Lee Goldberg MD Work Phone: [address] 12-11-2022 20:30-0400 SaO2% (BldA) [Mass fraction] 97 % Lee Goldberg MD Work Phone: [address] 12-11-2022 20:30-0400 Systolic blood pressure 132 mm[Hg] Lee Goldberg MD Work Phone: [address] 12-11-2022 19:35-0400 Body mass index (BMI) [Ratio] 26.63 kg/m2 Lee Goldberg MD Work Phone: [address] 12-11-2022 19:35-0400 Body temperature 97.3 [degF] Lee Goldberg MD Work Phone: [address] 12-11-2022 19:35-0400 Body weight 77.11 kg Lee Goldberg MD Work Phone: [address] 12-11-2022 19:35-0400 Respiratory rate 16 /min Lee Goldberg MD Work Phone: [place] [facility] 10-05-2022 21:33-0400 Body height 170.2 cm Julia Bejarano DO Work Phone: [address] 10-05-2022 21:33-0400 Body mass index (BMI) [Ratio] 23.49 kg/m2 Julia Bejarano DO Work Phone: [address] 10-05-2022 21:33-0400 Body temperature 98.71 [degF] Julia Bejarano DO Work Phone: [facility] [employer] 10-05-2022 21:33-0400 Body weight 68.04 kg Julia Bejarano DO Work Phone: [address] 10-05-2022 21:33-0400 Diastolic blood pressure 91 mm[Hg] Julia Bejarano DO Work Phone: [address] 10-05-2022 21:33-0400 Heart rate 94 /min Julia Bejarano DO Work Phone: [facility] [employer] 10-05-2022 21:33-0400 Respiratory rate 16 /min Julia Bejarano DO Work Phone: [address] 10-05-2022 21:33-0400 SaO2% (BldA) [Mass fraction] 98 % Julia Bejarano DO Work Phone: [address] 10-05-2022 21:33-0400 Systolic blood pressure 141 mm[Hg] Julia Beajrano DO Work Phone: [address] 08-14-2022 13:30-0500 Body height 170.18 cm Nicole Segoviaault Other [employer] Other 08-14-2022 13:30-0500 Body mass index (BMI) [Ratio] 23.49 kg/m2 Nicole Segoviaault Other [employer] Other 08-14-2022 13:30-0500 Body temperature 98.7 [degF] Nicole Segoviaault Other [employer] Other 08-14-2022 13:30-0500 Body weight 68.04 kg Nicole Segoviaault Other [employer] Other 08-14-2022 13:30-0500 Respiratory rate 18 /min Nicole Gaston Other [employer] Other 08-14-2022 13:30-0500 SaO2% (BldA) [Mass fraction] 98 % Nicole Segoviaault Other [employer] Other 09-12-2021 12:30-0500 Body height 170.18 cm Nicole Gaston Other [employer] Other 09-12-2021 12:30-0500 Body mass index (BMI) [Ratio] 22.71 kg/m2 Nicole Segoviaault Other [employer] Other 09-12-2021 12:30-0500 Body temperature 98.9 [degF] Nicole Gaston Other [employer] Other 09-12-2021 12:30-0500 Body weight 65.77 kg Nicole Gaston Other [employer] Other 09-12-2021 12:30-0500 Diastolic blood pressure 69 mm[Hg] Nicole Marina Other [employer] Other 09-12-2021 12:30-0500 Respiratory rate 18 /min Nicole Segoviaault Other [employer] Other 09-12-2021 12:30-0500 SaO2% (BldA) [Mass fraction] 100 % Nicole Marina Other [employer] Other 09-12-2021 12:30-0500 Systolic blood pressure 103 mm[Hg] Nicole Marina Other [employer] Other 08-22-2021 14:00-0500 Body height 170.18 cm Nicole Marina Other [employer] Other 08-22-2021 14:00-0500 Body mass index (BMI) [Ratio] 22.71 kg/m2 Nicole Marina Other [employer] Other 08-22-2021 14:00-0500 Body temperature 97.5 [degF] Nicole Segoviaault Other [employer] Other 08-22-2021 14:00-0500 Body weight 65.77 kg Nicole Segoviaault Other [employer] Other 08-22-2021 14:00-0500 Diastolic blood pressure 66 mm[Hg] Nicole Segoviaault Other [employer] Other 08-22-2021 14:00-0500 Respiratory rate 18 /min Nicole Marina Other [employer] Other 08-22-2021 14:00-0500 SaO2% (BldA) [Mass fraction] 100 % Nicole Marina Other [employer] Other 08-22-2021 14:00-0500 Systolic blood pressure 107 mm[Hg] Nicole Marina Other [employer] Other 04-15-2021 16:30-0400 Body height 172.72 cm Nicole Marina Other [employer] Other 04-15-2021 16:30-0400 Body mass index (BMI) [Ratio] 22.65 kg/m2 Nicole Marina Other [employer] Other 04-15-2021 16:30-0400 Body temperature 98.4 [degF] Nicole Marina Other [employer] Other 04-15-2021 16:30-0400 Body weight 67.59 kg Nicole Marina Other [employer] Other 04-15-2021 16:30-0400 Diastolic blood pressure 57 mm[Hg] Nicole Marina Other [employer] Other 04-15-2021 16:30-0400 Respiratory rate 18 /min Nicole Marina Other [employer] Other 04-15-2021 16:30-0400 SaO2% (BldA) [Mass fraction] 99 % Nicole Marina Other [employer] Other 04-15-2021 16:30-0400 Systolic blood pressure 106 mm[Hg] Nicole Marina Other [employer] Other 04-05-2021 19:56-0400 Body temperature 97.5 [degF] Leo Florez Work Phone: [email or web address] Work Phone: 04-05-2021 19:56-0400 Heart rate 71 /min Leo Florez Work Phone: [email or web address] Work Phone: 04-05-2021 19:56-0400 Respiratory rate 16 /min Leo Florez Work Phone: [employer] Phone: 04-05-2021 19:56-0400 SaO2% (BldA) [Mass fraction] 100 % Leo Florez Work Phone: [employer] Phone: 05-13-2019 20:33-0400 Body Temperature 97.5 [degF] Leo [place] 05-13-2019 20:33-0400 BP Diastolic 80 mm[Hg] [facility] [place] 05-13-2019 20:33-0400 BP Systolic 120 mm[Hg] [facility] [place] 05-13-2019 20:33-0400 Pulse (Heart Rate) 74 /min Leo rinku [employer] [place] 05-13-2019 20:33-0400 Pulse Oximetry 100 % Leo [facility] [employer] [place] 05-13-2019 20:33-0400 Respiratory Rate 14 /min [facility] Encounters Encounter Date Encounter Type Care Provider Facility Start: 10-28-2024 End: 10-30-2024 [facility] Start: 10-28-2024 End: 10-30-2024 Subsequent hospital visit by physician [address] Room 2 [facility] Comment on above: Pain, joint, shoulde r, right Start: 12-29-2023 End: 12-29-2023 ambulatory VINAY D DOLCE Not Available Start: 12-15-2023 End: 12-15-2023 ambulatory VINAY D DOLCE Not Available Start: 12-09-2023 End: 12-10-2023 ambulatory IT NETWORK ENGINEER NICOLE MARINA Facility:[facility] [place] Start: 02-10-2023 End: 02-10-2023 Subsequent hospital visit by physician Nicole Marina APPRENTICE JOCKEY - TELEVISION INSPECTOR Work Phone: [facility] Start: 12-11-2022 End: 12-11-2022 Emergency department patient visit Lee Goldberg MD Work Phone: [facility] Comment on above: Sprain of right ankl e, unspecified ligament, sequela (Primary Dx) Start: 10-05-2022 End: 10-05-2022 Emergency department patient visit Julia Bejarano DO Work Phone: [facility] Comment on above: Fall, initial encoun ter (Primary Dx); Left wrist pain Start: 08-14-2022 End: 08-14-2022 ambulatory Nicole Marina Other [employer] Other Start: 08-14-2022 Office outpatient vi sit 15 minutes Nicole Marina [facility] Start: 10-16-2021 End: 10-16-2021 ambulatory Nciole Marina Other [employer] Other Start: 10-16-2021 Telephone encounter Nicole michel [facility] Start: 09-16-2021 Encounter for genera l adult medical examination without abnormal findings NICOLE MARINA [facility] Start: 09-12-2021 End: 09-13-2021 ambulatory NICOLE MARINA Facility: Start: 09-12-2021 End: 09-13-2021 Encounter for general adult medical examination without abnormal findings NICOLE MARINA Facility: Start: 09-12-2021 Office outpatient vi sit 15 minutes Nicole Marina [facility] Start: 08-22-2021 End: 08-22-2021 ambulatory Nicole Marina Other [employer] Other Start: 08-22-2021 Office outpatient vi sit 15 minutes Nicole Marina [facility] Start: 04-15-2021 Encounter for routin e child health examination without abnormal findings Nicole Marina [facility] Start: 04-15-2021 Initial preventive medicine new pt age 12-17 yr Nicole Marina [facility] Start: 04-05-2021 End: 04-05-2021 Emergency department patient visit Leo Florez Work Phone: [facility] Comment on above: Acute right ankle pa in (Primary Dx) Start: 03-19-2021 End: 03-19-[address] GUNJAN MCKENZIE Facility: Start: 05-13-2019 End: 05-13-2019 Emergency department patient visit Leo Florez [facility] Comment on above: Injury of left ankle , initial encounter (Primary Dx) Procedures Date Procedure Procedure Detail Performing Clinician Start: 02-10-2023 Ecg routine ecg w/le ast 12 lds w/i&r Bandar Cerna APPRENTICE J[employer]KEY [email or web address] Work Phone: Start: 02-10-2023 Basic metabolic pane l calcium 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 [employer] Work Phone: Start: 10-05-2022 End: 10-05-2022 Radex wrist complete minimum 3 views Julia Bejarano DO Work Phone: Start: 04-05-2021 End: 04-05-2021 Radiologic examination tibia & fibula 2 views Ash Cespedes PA-C Work Phone: Start: 05-13-2019 Radex foot complete minimum 3 views [employer] Work Phone: Start: 05-13-2019 Radex ankle complete minimum 3 views [employer] Work Phone: Plan of Treatment Date Care Activity Detail Author Start: 06-28-2026 DTaP/Tdap/Td vaccine (2 - Td or Tdap) DTaP/Tdap/Td vaccine (2 - Td or Tdap) [facility] Start: 02-10-2025 Influenza vaccination Flu vacc ine (Season Ended) [facility] Start: 03-13-2024 COVID-19 Vaccine ( season) COVID-19 Vaccine ( season) [facility] Start: 02-10-2023 Influenza vaccination B [facility] Start: 2022 Hepatitis B vaccine (1 of 3 - 19+ 3-dose series) Hepatitis B vaccine (1 of 3 - 19+ 3-dose series) [facility] Start: 02-10-2022 Influenza vaccination Flu vaccine (# 1) [facility] Start: 2021 Hepatitis C screening Hepatitis C sc reen [facility] Start: 03-13-2021 Influenza vaccination Flu vaccine (# 1) [facility] Work Phone: Start: 2019 Meningococcal (ACWY) Vaccine (1 - 2-dose series) Meningococcal (ACWY) Vaccine (1 - 2-dose series) [place], [place] Start: 2019 Meningococcal B vacc ine (1 of 2 - Standard) Meningococcal B vaccine (1 of 2 - Standard) [facility] Start: 03-13-2019 Influenza vaccination Flu vaccine (# 1) [place], [place] Start: 2018 HIV screen HIV screen [place], [place] Start: 2018 HIV screening HIV screen [facility] Start: 2018 HPV vaccine (1 - Mal e 3-dose series) HPV vaccine (1 - Male 3-dose series) [facility] Start: 07-26-2016 DTaP/Tdap/Td vaccine (2 - Td or Tdap) DTaP/Tdap/Td vaccine (2 - Td or Tdap) [facility] [employer] Phone: Start: 07-26-2016 DTaP/Tdap/Td vaccine (2 - Td) DTaP/Tdap/Td vaccine (2 - Td) [place], [place] Start: 2016 Varicella Vaccine (1 of 2 - 13+ 2-dose series) Varicella Vaccine (1 of 2 - 13+ 2-dose series) [place] Start: 2015 COVID-19 Vaccine (1) COVID-19 Vaccin e (1) [facility] [employer] Phone: Start: 2015 Depression Screen Depression Screen [facility] Start: 2014 HPV vaccine (1 - Mal e 2-dose series) HPV vaccine (1 - Male 2-dose series) [facility] Start: 08-14-2012 Hepatitis A vaccine (2 of 2 - 2-dose series) Hepatitis A vaccine (2 of 2 - 2-dose series) [facility] Start: 2004 Hepatitis A vaccine (1 of 2 - 2-dose series) Hepatitis A vaccine (1 of 2 - 2-dose series) [place], [place] Start: 2004 Measles,Mumps,Rubell a (MMR) vaccine (1 of 2 - Standard series) Measles,Mumps,Rubella (MMR) vaccine (1 of 2 - Standard series) [place] Start: 2004 Varicella vaccine (1 of 2 - 2-dose childhood series) Varicella vaccine (1 of 2 - 2-dose childhood series) [facility] [employer] Phone: Start: 2003 COVID-19 Vaccine (#1) COVID-19 Vacci ne (#1) [facility] Start: 2003 Polio vaccine 0-18 ( 1 of 3 - 4-dose series) Polio vaccine 0-18 (1 of 3 - 4-dose series) [place], [place] Start: 2003 Hepatitis B Vaccine (1 of 3 - 3-dose primary series) Hepatitis B Vaccine (1 of 3 - 3-dose primary series) [place] Start: 2003 Hepatitis C screening Hepatitis C sc reen [facility] Phone: EKG 12 Lead EKG 12 Lead ECG Routine 02/10/2023 11:31 AM EDT [facility] Phone: End: 05-13-2019 Splint application Splint application Procedures STAT One Time for 1 Occurrences starting 05/13/2019 until 05/13/2019 [facility] [employer] [place] Comment on above: One Time for 1 Occur rences starting 05/13/2019 until 05/13/2019 End: 12-11-2022 XR ANKLE RIGHT (MIN 3 VIEWS) [email or web address] Phone: Comment on above: Once for 1 Occurrenc es starting 12/11/2022 until 12/11/2022 End: 10-28-2024 XR Shoulder - right 2 Views [employer] Phone: Comment on above: 1 Occurrences starti ng 10/28/2024 until 10/28/2024 Immunizations Immunization Date Immunization Notes Care Provider Fa [facility] 04-20-2020 influenza, injectabl e, quadrivalent, contains preservative Nicole Marina Other [employer] Other 05-03-2018 meningococcal polysaccharide (groups A, C, Y and W-135) diphtheria toxoid conjugate vaccine (MCV4P) Nicole Marina Other [employer] Other 06-28-2016 tetanus toxoid, redu juventino diphtheria toxoid, and acellular pertussis vaccine, adsorbed Leo Florez [facility] [place] 02-12-2012 hepatitis A vaccine, pediatric/adolescent dosage, 2 dose schedule Nicole Marina Other [employer] Other 07-24-2011 measles, mumps and rubella virus vaccine Nicloe Marina Other [employer] Other 07-24-2011 varicella virus vaccine Mikey Marina Other [employer] Other 03-03-2008 diphtheria, tetanus toxoids and pertussis vaccine Nicole Marina Other [employer] Other 03-03-2008 varicella virus vaccine Step felisa Marina Other [employer] Other 10-28-2004 diphtheria, tetanus toxoids and pertussis vaccine Nicole Gaston Other [employer] Other 10-28-2004 poliovirus vaccine, unspecified formulation Nicole Gaston Other [employer] Other 07-30-2004 measles, mumps and rubella virus vaccine Nicole Gaston Other [employer] Other 2003 diphtheria, tetanus toxoids and pertussis vaccine Nicolefelisa Marina Other [employer] Other 2003 hepatitis B vaccine, pediatric or pediatric/adolescent dosage Nicole Gaston Other [employer] Other 2003 poliovirus vaccine, unspecified formulation Nicole Gaston Other [employer] Other 2003 diphtheria, tetanus toxoids and pertussis vaccine Nicole Gaston Other [employer] Other 2003 poliovirus vaccine, unspecified formulation Nicole Gaston Other [employer] Other 2003 diphtheria, tetanus toxoids and pertussis vaccine Nicole Gaston Other [employer] Other 2003 hepatitis B vaccine, pediatric or pediatric/adolescent dosage Nicole Gaston Other [employer] Other 2003 poliovirus vaccine, unspecified formulation Nicole Marina Other [employer] Other 2003 hepatitis B vaccine, pediatric or pediatric/adolescent dosage Nicole Marina Other [employer] Other Payers Date Payer Category Payer Unknown [id number] 2022 Private Health Insurance [id number] 2019 Unknown [id number] 2018 Unknown [id number] 2003 Unknown [id number] [id number] 2003 Unknown [id number] 2003 Unknown [id number] 2.16.84 [id number] 2003 Unknown [id number] [id number] 1979 Unknown [id number] 2.16.84 [id number] 1979 Unknown [id number] 2.16.84 [id number] 1959 Private Health Insurance [id number] 1959 Unknown [id number] 1959 Unknown [id number] Social History Date Type Detail Facility Start: 05-13-2019 End: 10-05-2022 Tobacco smoking status NHIS Never smoker [address] Start: 2003 [facility] Assigned At [facility] [place] [place] Start: 05-13-2019 End: 10-05-2022 Tobacco use and exposure Never used [employer] Start: 09-25-2022 End: 10-05-2022 Exposure to SARS-CoV-2 (event) Not sure [employer] Start: 12-11-2022 End: 02-27-2023 Sex Assigned At [employer] Start: 10-05-2022 End: 02-27-2023 Alcohol intake Ex-drinker (finding) [address] Work Phone: Start: 10-06-2022 End: 12-11-2022 History SDOH Alcohol Frequency [address] Work Phone: Start: 10-06-2022 End: 12-11-2022 History SDOH Alcohol Std Drinks 0 [email or web address] Phone: Start: 12-11-2022 End: 02-27-2023 History of Social function [employer] How often to you hav e a drink containing alcohol? Never [employer] How many standard dr inks containing alcohol do you have on a typical day? Patient does not drink [employer] Start: 08-22-2012 Sex Male (finding) [facility] Clinical Notes 04-15-2021 to 10-05-2022 Discharge Instructions Note Date & Type Note Facility 10-05-2022 Hospital Discharg e instructions Julia Bejarano DO - 10/05/2022 11:12 PM EDT Please [...] tingling or weakness. documented in this encounter [facility] [employer] Work Phone: 08-14-2022 Evaluation note Encounter Date Diagnosis [...] care provider if no improvement of symptoms. [employer] Other 03-03-2022 Evaluation note* Encounter Date Diagnosis Assessment Notes Treatment Notes Treatment Clinical Notes Sep, Loose body in right ankle (ICD-10 - M24.071) Xray shows possible loose body. Referral placed to ortho since pain has become chronic in nature. Sep, Wellness examination (ICD-10 - Z00.00) Sep, Injury of right ankle, subsequent encounter (ICD-10 - S99.911D) Referal being sent and paperwork to [facility] and they should contact you to help set up appointment due to nature of injury since this has been going on for so long and no relief. [employer] Other 02-10-2022 Evaluation note* Encounter Date Diagnosis Assessment Notes Treatment Notes Treatment Clinical Notes Aug, Pain in right ankle and joints of right foot (ICD-10 - M25.571) Aug, Loose body in right ankle (ICD-10 - M24.071) Xray shows possible loose body. Referral placed to ortho since pain has become chronic in nature. [employer] Other 10-04-2021 Evaluation note* Encounter Date Diagnosis [...] to be seen. Also always know the [facility] Emergency Number is 24 hours a day available, even on holidays there is someone you can reach out to. Also we will check other labs yearly to screen for other health issues. Please remember we are a team and your opinion is very important in all of your healthcare decisions [employer] Other Evaluation note* Diagnosis Acute right ankle pain- Primary documented in this encounter [employer] Phone: evaluation noteNo [employer]Nort [employer] Other Evaluation note* Diagnosis Fall, initial encounter- Primary Left wrist pain Pain in joint, forearm documented in this encounter [email or web address] Phone: evaluation note* Diagnosis Sprain of right ankle, unspecified ligament, sequela- Primary documented in this encounter [email or web address] Phone: evaluation note* Diagnosis Pain, joint, shoulder, right Pain in joint, shoulder region documented in this encounter [employer] general Narrative - Reported* Type Description Date Medical History non verbal learning disorder Surgical History scope [employer] Other History general Narrative - Reported* Type Description Date Medical History non verbal learning disorder Surgical History scope Surgical History Dental Surgery front tooth jacques melissa Hospitalization History ER for Right ankle Sprai n 2020 Hospitalization History see above [employer] Other Hospital Discharge instructions* Attachments The following attachments cannot be sent through Care Everywhere. * Musculoskeletal Pain (Chinese) * Joint Pain (Chinese) [facility] Hospital Discharge instructions* Attachments The following attachments cannot be sent through Care Everywhere. * RICE: Rest - Ice - Compression - Elevation: Video (Chinese) * Ankle Sprain (Chinese) [facility] [employer] Phone: Discharge Instructions * Instructions* Areli Miller PA-C - 05/13/2019 Rest ice and elevate your ankle. Keep splint in place. Follow-up with Dr. Almazan next week for evaluation. * Attachments The following attachments cannot be sent through Care Everywhere. 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 Augie zamudio's office in [place] Diagnosis 1 Loose body in right ankle (M24.071) Referral Organization [facility] Referring Provider First Name Nicole Referring Provider Last Name Gaston Referring Provider Specialty Nurse Pract itioner Referred Organization [facility] Referred Address ,[place], [place],[address] Referred Provider Specialty Orthopedic S urgery Referral [...] and content) DATE CREATED AUTHOR 09/18/2021 [facility] DATE CREATED AUTHOR AUTHOR'S ORGANIZ ATION 09/23/[address] [facility] DATE CREATED AUTHOR AUTHOR'S ORGANIZ ATION 02/10/2022 [facility] DATE CREATED AUTHOR AUTHOR'S ORGANIZ ATION 12/10/2023 [facility] DATE CREATED AUTHOR AUTHOR'S ORGANIZ ATION 12/30/2023 [facility] DATE CREATED AUTHOR AUTHOR'S ORGANIZ ATION 11/06/2024 [facility] Care Teams (unrecognized sec tion and content) Basketball Scout Relationship Specialty Start [place] [address] PCP - General 06/28/16 Basketball Scout Relationship Specialty Start Date End Date Nicoel Marina APRN - ALEJANDRA [address] [place] [address] PCP - General Nurse Practitioner 12/11/22 Basketball Scout Relationship Specialty Start Date End Date Nicole MarinaROLAND TELEVISION INSPECTOR [address] [place] [address] PCP - General Nurse Practitioner 12/11/22 Basketball Scout Relationship Specialty Start Date End Date Nicole MarinaROLAND TELEVISION INSPECTOR [address] [place] [address] PCP - General Nurse Practitioner 12/11/22 Basketball Scout Relationship Specialty Start Date End Date Nicole MarinaROLAND NP [address] [place] [address] PCP - General Nurse Practitioner 12/11/22 FOR [...] BE BASED ON THE PRIMARY CLINICAL RECORDS. [employer] [facility]. provides no warranty or guarantee of the accuracy or completeness of information in this document.
--- NOTE | 2024-12-14 22:33 | XR_ITS ---
[place] [id number] Patient Name: KIMBERLY MONTANEZ MRN: [id number] date: 2005 Sex: M Assigned Patient Location: ER Current Patient Location: ER Accession/Order Number: [id number] Exam Date: 12/14/2024 22:51 Report Date: 12/14/2024 22:52 At the request of: ESAU ADAMS MD Procedure: XR ankle LT min 3V 3 views left ankle plain film COMPARISON: 09/21/2023 HISTORY: Acute left ankle pain. Injury. ACUTE FINDINGS: No acute displaced fracture. Old avulsion fracture from the tip of the lateral malleolus. DEGENERATIVE CHANGE: Unremarkable SOFT TISSUE FINDINGS: Unremarkable JOINT EFFUSION: None POSTOP CHANGES: None BONE MINERALIZATION: Adequate XR/XR ankle LT min 3V IMPRESSION: No acute findings. Impression dictated by: Forest Donnelly M.D. 12/14/2024 10:52 PM Dictation Location: [employer] Electronically authenticated by: [id number] Date: 12/14/2024 22:52
--- NOTE | 2024-12-14 23:07 | ED_ITS ---
HPI HPI - Extremity Injury (Lower) General Chief Complaint: Extremity Injury, Lower Stated Complaint: left lower extremity problem Time Seen by Provider: 12/14/24 22:33 Source: patient Mode of arrival: walk-in History of Present Illness HPI Narrative: This 19-year-old male presents for evaluation of left ankle pain. The patient states he was jumping off a trailer and rolled his left ankle. He states he heard a pop. He has some pain and swelling at the lateral malleolus. He denies falling at that time or any additional injury. He also has a paronychia of the left great toe. He states he has been soaking it in warm water and it is improving. 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 No additional injuries or complaints Related Data Allergies Allergy/AdvReac Type Severity Reaction Status Date / Time cefuroxime (From Ceftin) Allergy Severe Rash Verified 12/14/24 21:56 Penicillins Allergy Severe rash Verified 12/14/24 21:56 Opioid HPI Opioid Management Most Recent Pain and Opioid Data: Last Pain Scale 8 Today, 21:48 Review of Systems ROS Status of ROS 10 or more systems reviewed and unremark able except as noted in history and below PFSH PFSH Social History Little interest or pleasure in doing things: not at all Feeling down, depressed, or hopeless: not at all Exam Narrative Exam Narrative: Vital signs and Nursing Notes reviewed: Patient is afebrile with a normal pulse, normal blood pressure, he is not hypoxic with pulse ox of 98% on room air General: Awake, alert, oriented, no acute distress, lying comfortably on the stretcher-patient ambulates with a mild antalgic gait to the left due to left ankle pain HEENT: Normocephalic atraumatic, mucous membranes are moist and pink, eyes are clear, normal conjunctiva, vision is grossly intact Chest: Lungs are clear to auscultation with good air entry, there is no wheezing rhonchi or rales appreciated no accessory muscle use, patient is speaking in complete sentences-no chest wall tenderness to palpation CVS: Regular rate and rhythm S1-S2, no murmurs rubs or gallops, pulses are brisk and equal bilaterally Extremities: Moving all extremities, there is mild tenderness and swelling to the left lateral malleolus. Achilles is intact. There is no calf swelling or tenderness noted. Feet are warm and sensate. There is a paronychia to the left great toenail. Does not appear to be engorged but is erythematous. Skin: Normal in appearance without rash,pallor, petechiae or purpura Neuro: No focal deficits Constitutional Vital Signs, click to edit/add: Last Vital Signs Temp 97.9 F 12/14/24 21:48 Pulse 99 H 12/14/24 21:48 Resp 14 12/14/24 21:48 BP 127/82 12/14/24 21:48 Pulse Ox 98 12/14/24 21:48 O2 Del Method Room Air 12/14/24 21:48 Course Vital Signs Vital signs: Vital Signs Temperature 97.9 F 12/14/24 21:48 Pulse Rate 99 H 12/14/24 21:48 Respiratory Rate 14 12/14/24 21:48 Blood Pressure 127/82 12/14/24 21:48 Pulse Oximetry 98 12/14/24 21:48 Oxygen Delivery Method Room Air 12/14/24 21:48 Temperature 97.9 F 12/14/24 21:48 Pulse Rate 99 H 12/14/24 21:48 Respiratory Rate 14 12/14/24 21:48 Blood Pressure 127/82 12/14/24 21:48 Pulse Oximetry 98 12/14/24 21:48 Oxygen Delivery Method Room Air 12/14/24 21:48 MDM - Extremity Injury (Lower) MDM Narrative Medical decision making narrative: This 19-year-old male presents for evaluation of left ankle pain after he rolled his ankle while jumping off of a trailer earlier in the evening. He states he has broken this ankle in the past. He does have an antalgic gait and mild tenderness and swelling to the lateral malleolus. He also has a paronychia to the left great toenail. He declined any intervention on the paronychia. X-ray of the left ankle was reviewed by radiology and is negative for acute fracture but does show an old fracture. The patient declined the need for any pain medication. He was placed in an Leandro wrap and Aircast to immobilize the left ankle. He states he plans to follow-up with his marketing teacher in [facility] for further treatment of the paronychia. He was encouraged to continue soaking it in warm Epsom salt water to help it drain and relieve pressure. There is no sign of cellulitis or lymphangitis related to the paronychia. The patient declined any ibuprofen or Tylenol for the ankle sprain stating that he had those medications at home. Discharge Plan Discharge Chief Complaint: Extremity Injury, Lower Clinical Impression: Left ankle sprain, Paronychia due to ingrown nail Patient Disposition: Home, Self-Care Time of Disposition Decision: 23:06 Condition: Good Print Language: Kinyarwanda Instructions: Ankle Sprain (ED), Paronychia (ED) Referrals: Physician,Non-Staff, MD [Primary Care Provider] - 1 week
[2024-12-14 23:14] VITALS: BP 112/73; PULSE 97; O2SAT 97
== END 2024-12-14 23:14 | disposition home or self-care (01) ==
PROVIDERS: Emergency Provider Emergency Medicine
DX: S93.402A Sprain of unspecified ligament of left ankle, initial encounter (principal); X50.1XXA Overexertion from prolonged static or awkward postures, initial encounter; L03.032 Cellulitis of left toe; L60.0 Ingrowing nail
CPT/HCPCS: 73610; 99283